=== PATIENT | male | born 1940 | race Caucasian/White ===

== ENCOUNTER 2017-08-28 12:20 | Emergency (ER) | payer OTHER ==
[2017-08-28] MEDS ORDERED: predniSONE 20 MG TAB ONE (13:09)
[2017-08-28] MEDS ORDERED: ALBUTEROL 2.5 MG/3 ML NEB SOL ONE (13:09)
[2017-08-28] MEDS ORDERED: IPRATROPIUM BROM 0.5MG/2.5ML ONE (13:09)
--- NOTE | 2017-08-28 13:53 | RAD REPORT ---
EXAM DESCRIPTION: RAD - Chest Pa And Lat (2 Views) - 08/28/2017 1:33 pm CLINICAL HISTORY: Cough and fever. COMPARISON: 10/18/2016, 07/25/2016 FINDINGS: The lungs are mildly emphysematous but clear. The heart is normal in size. No displaced fr actures. IMPRESSION: Mild COPD.
--- NOTE | 2017-08-28 14:31 | ER ---
Nurse's Notes [facility] Name: Stefano Celeste Age: 77 yrs Sex: Male : 1940 Arrival Date: 08/28/2017 Time: 12: Bed 19 Private MD: Diagnosis: Chronic obstructive pulmonary disease with (acute) exacerbation;Acute bronchitis Presentation: 08/28 12:24 Presenting complaint: Patient states: I have had a productive cough and fever since la1 and not my sputum is getting darker. Transition of care: patient was not received from another setting of care. Onset of symptoms was August 28, 2017. Initial Sepsis Screen: Does the patient meet any 2 criteria? No. Patient's initial sepsis screen is negative. Does the patient have a suspected source of infection? No. Patient's initial sepsis screen is negative. Care prior to arrival: None. 12:24 Method Of Arrival: Ambulatory la1 12:24 Acuity: IZABEL 3 la1 Historical: - Allergies: 12:24 NKDA; la1 - Home Meds: 12:43 atorvastatin 80 mg Oral tab 1 tab once daily [Active]; hydrocortisone 10 mg Oral tab 1 rb1 tab 2 times per day [Active]; levothyroxine 125 mcg tab 1 tab once daily [Active]; lisinopril 2.5 mg Oral tab 1 tab once daily [Active]; metoprolol tartrate 25 mg Oral tab 1 tab 2 times per day [Active]; rivaroxaban 20 mg Oral 1 tab once daily [Active]; Vitamin D Oral [Active]; vitamin E 400 unit Oral cap [Active]; - PMHx: 12:24 Atrial Fib; cardiac stents; COPD; Hypertension; Myocardial infarction; pituitary tumor la1 (removed); Prostate Cancer; - PSHx: 12:43 None; rb1 - Immunization history:: Adult Immunizations up to date. - Social history:: Smoking status: Patient/guardian denies using tobacco. Screenin:40 Abuse screen: Denies threats or abuse. Nutritional screening: No deficits noted. rb1 Tuberculosis screening: No symptoms or risk factors identified. Fall Risk None identified. Assessment: 12:40 General: Appears uncomfortable, Behavior is calm, cooperative. General: Reports fever rb1 for feeling ill for 2-3 days. Pain: Complains of pain in ribs Pain currently is 9 out of 10 on a pain scale. Pain began Robert. Neuro: Level of Consciousness is awake, alert, obeys commands, Oriented to person, place, time, situation. Cardiovascular: Capillary refill < 3 seconds is brisk in bilateral fingers. Respiratory: Reports cough that is productive, Airway is patent Respiratory effort is even, unlabored, Respiratory pattern is regular, symmetrical. GI: No signs and/or symptoms were reported involving the gastrointestinal system. : No signs and/or symptoms were reported regarding the genitourinary system. Derm: Skin is pink, warm \T\ dry. 13:30 Reassessment: Patient appears in no apparent distress at this time. Patient and/or rb1 family updated on plan of care and expected duration. Pain level reassessed. Patient is alert, oriented x 3, equal unlabored respirations, skin warm/dry/pink. Patient states symptoms have improved. 14:23 Reassessment: Patient appears in no apparent distress at this time. No changes from rb1 previously documented assessment. Vital Signs: 12:25 BP 146 / 69; Pulse 87; Resp 19; Temp 99.8(TE); Pulse Ox 95% on R/A; Weight 112.04 kg; la1 Height 6 ft. 0 in. (182.88 cm); 13:20 BP 144 / 63; Pulse 85; Resp 17; Pulse Ox 96% on R/A; rb1 14:12 BP 133 / 70; Pulse 88; Resp 18; Pulse Ox 95% on R/A; rb1 12:25 Body Mass Index 33.50 (112.04 kg, 182.88 cm) la1 ED Course: 12:22 Patient arrived in ED. as 12:24 Arm band placed on right wrist. la1 12:25 Triage completed. la1 12:37 Ryan Pacheco PA is PHCP. jr8 12:37 Rambo Mcguire MD is Attending Physician. jr8 12:38 Precious Berry, CHERYL is Primary Nurse. rb1 12:40 Patient has correct armband on for positive identification. Bed in low position. Call rb1 light in reach. Side rails up X 1. Pulse ox on. NIBP on. 13:29 XRAY Chest Pa And Lat (2 Views) In Process Unspecified. EDMS 14:43 No provider procedures requiring assistance completed. Patient did not have IV access rb1 during this emergency room visit. Administered Medications: 13:10 Drug: predniSONE 40 mg Route: PO; rb1 13:30 Follow up: Response: No adverse reaction; Marked relief of symptoms rb1 13:10 Drug: Albuterol - atroVENT (3:1) (2.5 mg - 0.5 mg) 3 ml Route: Nebulizer; rb1 13:30 Follow up: Response: No adverse reaction; Marked relief of symptoms rb1 Outcome: 14:31 Discharge ordered by MD. borja 14:43 Patient left the ED. rb1 14:43 Discharged to home ambulatory. rb1 14:43 Condition: stable 14:43 Discharge instructions given to patient, Instructed on discharge instructions, follow up and referral plans. medication usage, Demonstrated understanding of instructions, follow-up care, medications, Prescriptions given X 4. Signatures: Dispatcher [employer] Sherie Page Josh, PA PA jr8 Nathaniel Angel RN RN la1 Precious Berry, CHERYL RN rb1 Corrections: (The following items were deleted from the chart) 19:48 13:20 BP 144 / 63; Pulse 85bpm; Resp 17bpm; Pulse Ox 99% RA; rb1 rb1
--- NOTE | 2017-08-28 14:32 | EDPHYS ---
Physician Documentation [facility] Name: Stefano Celeste Age: 77 yrs Sex: Male : 1940 Arrival Date: 08/28/2017 Time: 12:22 Bed 19 Private MD: ED Physician Rambo Mcguire HPI: 08/28 17:29 This 77 yrs old Male presents to ER via Ambulatory with complaints of Chest jr8 Congestion. 17:29 The patient or guardian reports cough, that is intermittent, described as mild. Onset: jr8 The symptoms/episode began/occurred gradually, 1 day(s) ago. Severity of symptoms: At their worst the symptoms were moderate, in the emergency department the symptoms are unchanged. Modifying factors: The symptoms are alleviated by nothing, the symptoms are aggravated by nothing. Associated signs and symptoms: The patient has no apparent associated signs or symptoms. The patient has experienced similar episodes in the past, a few times. The patient has not recently seen a physician. Historical: - Allergies: 12:24 NKDA; la1 - Home Meds: 12:43 atorvastatin 80 mg Oral tab 1 tab once daily [Active]; hydrocortisone 10 mg Oral tab 1 rb1 tab 2 times per day [Active]; levothyroxine 125 mcg tab 1 tab once daily [Active]; lisinopril 2.5 mg Oral tab 1 tab once daily [Active]; metoprolol tartrate 25 mg Oral tab 1 tab 2 times per day [Active]; rivaroxaban 20 mg Oral 1 tab once daily [Active]; Vitamin D Oral [Active]; vitamin E 400 unit Oral cap [Active]; - PMHx: 12:24 Atrial Fib; cardiac stents; COPD; Hypertension; Myocardial infarction; pituitary tumor la1 (removed); Prostate Cancer; - PSHx: 12:43 None; rb1 - Immunization history:: Adult Immunizations up to date. - Social history:: Smoking status: Patient/guardian denies using tobacco. ROS: 17:29 Eyes: Negative for injury, pain, redness, and discharge, ENT: Negative for injury, jr8 pain, and discharge, Neck: Negative for injury, pain, and swelling, Cardiovascular: Negative for chest pain, palpitations, and edema, Abdomen/GI: Negative for abdominal pain, nausea, vomiting, diarrhea, and constipation, Back: Negative for injury and pain, MS/Extremity: Negative for injury and deformity, Skin: Negative for injury, rash, and discoloration, Neuro: Negative for headache, weakness, numbness, tingling, and seizure. 17:29 Respiratory: Positive for cough, Negative for shortness of breath, sputum production, wheezing. Exam: 17:29 Eyes: Pupils equal round and reactive to light, extra-ocular motions intact. Lids and jr8 lashes normal. Conjunctiva and sclera are non-icteric and not injected. Cornea within normal limits. Periorbital areas with no swelling, redness, or edema. ENT: Nares patent. No nasal discharge, no septal abnormalities noted. Tympanic membranes are normal and external auditory canals are clear. Oropharynx with no redness, swelling, or masses, exudates, or evidence of obstruction, uvula midline. Mucous membranes moist. Neck: Trachea midline, no thyromegaly or masses palpated, and no cervical lymphadenopathy. Supple, full range of motion without nuchal rigidity, or vertebral point tenderness. No Meningismus. Cardiovascular: Regular rate and rhythm with a normal S1 and S2. No gallops, murmurs, or rubs. Normal PMI, no JVD. No pulse deficits. Abdomen/GI: Soft, non-tender, with normal bowel sounds. No distension or tympany. No guarding or rebound. No evidence of tenderness throughout. Back: No spinal tenderness. No costovertebral tenderness. Full range of motion. Skin: Warm, dry with normal turgor. Normal color with no rashes, no lesions, and no evidence of cellulitis. MS/ Extremity: Pulses equal, no cyanosis. Neurovascular intact. Full, normal range of motion. Neuro: Awake and alert, GCS 15, oriented to person, place, time, and situation. Cranial nerves II-XII grossly intact. Motor strength 5/5 in all extremities. Sensory grossly intact. Cerebellar exam normal. Normal gait. 17:29 Respiratory: the patient does not display signs of respiratory distress, Respirations: normal, symetrical, no use of accessory muscles, no grunting, no evidence of nasal flaring, no prolonged exhalations, no pursed lip breathing, no retractions, no shallow respirations, no splinting, no tachypnea, Breath sounds: wheezing: expiratory that is moderate, is heard diffusely. Vital Signs: 12:25 BP 146 / 69; Pulse 87; Resp 19; Temp 99.8(TE); Pulse Ox 95% on R/A; Weight 112.04 kg; la1 Height 6 ft. 0 in. (182.88 cm); 13:20 BP 144 / 63; Pulse 85; Resp 17; Pulse Ox 96% on R/A; rb1 14:12 BP 133 / 70; Pulse 88; Resp 18; Pulse Ox 95% on R/A; rb1 12:25 Body Mass Index 33.50 (112.04 kg, 182.88 cm) la1 MDM: 12:37 Patient medically screened. jr8 14:30 Data reviewed: vital signs, nurses notes, lab test result(s), radiologic studies, plain jr8 films, and as a result, I will discharge patient. Data interpreted: Pulse oximetry: on room air is 95 %. Interpretation: normal. Counseling: I had a detailed discussion with the patient and/or guardian regarding: the historical points, exam findings, and any diagnostic results supporting the discharge/admit diagnosis, radiology results, the need for outpatient follow up, a family practitioner, to return to the emergency department if symptoms worsen or persist or if there are any questions or concerns that arise at home. 08/28 12:56 Order name: XRAY Chest Pa And Lat (2 Views); Complete Time: 14:29 jr8 Administered Medications: 13:10 Drug: predniSONE 40 mg Route: PO; rb1 13:30 Follow up: Response: No adverse reaction; Marked relief of symptoms rb1 13:10 Drug: Albuterol - atroVENT (3:1) (2.5 mg - 0.5 mg) 3 ml Route: Nebulizer; rb1 13:30 Follow up: Response: No adverse reaction; Marked relief of symptoms rb1 Disposition: 08/29 09:25 Co-signature as Attending Physician, Rambo Mcguire MD I agree with the assessment and zulema plan of care. Disposition: 08/28/17 14:31 Discharged to Home. Impression: Chronic obstructive pulmonary disease with (acute) exacerbation, Acute bronchitis. - Condition is Stable. - Discharge Instructions: Acute Bronchitis, Chronic Obstructive Pulmonary Disease. - Prescriptions for Tessalon Perles 100 mg Oral Capsule - take 1 capsule by ORAL route every 8 hours As needed; 15 capsule. Zithromax Z- Charly 250 mg Oral Tablet - take 1 tablet by ORAL route as directed for 5 days Day 1 - take two (2) tablets one time. Day 2, 3, 4 , 5 take one (1) tablet once daily.; 6 tablet. Prednisone 20 mg Oral Tablet - take 2 tablet by ORAL route once daily for 5 days; 10 tablet. Albuterol Sulfate 90 mcg/actuation - inhale 1-2 puff by INHALATION route every 4-6 hours; 1 Inhaler. - Medication Reconciliation Form, Thank You Letter, Antibiotic Education, Prescription Opioid Use form. - Follow up: Private Physician; When: 2 - 3 days; Reason: Recheck today's complaints, Continuance of care, Re-evaluation by your physician. - Problem is new. - Symptoms have improved. Signatures: Dispatcher [employer] EDWV Rambo Mcguire MD MD cha Roszak, Josh, PA PA jr8 Nathaniel Angel RN RN la1 Precious Berry RN RN rb1 Corrections: (The following items were deleted from the chart) 08/28 17:30 17:29 The patient has not experienced similar symptoms in the past, jr8 jr8
== END 2017-08-28 14:43 | disposition home or self-care (01) ==
LOC: ER 12:20
DX: J44.1 Chronic obstructive pulmonary disease with (acute) exacerbation (principal); J20.9 Acute bronchitis, unspecified; J44.0 Chronic obstructive pulmonary disease with (acute) lower respiratory infection; I48.2 Chronic atrial fibrillation; I10 Essential (primary) hypertension; I25.2 Old myocardial infarction
CPT/HCPCS: 71046; 94640; 99284; J7512

== ENCOUNTER 2017-10-18 12:49 | Emergency (ER) | payer OTHER ==
--- NOTE | 2017-10-18 14:18 | RAD REPORT ---
EXAM DESCRIPTION: RAD - Chest Single View - 10/18/2017 2:12 pm CLINICAL HISTORY: Chest pain, hypertension COMPARISON: 08/28/2017 FINDINGS: Portable technique limits examination quality. The lungs are grossly clear. The heart is normal in size. No displaced fractures. IMPRESSION: No acute intrathoracic process suspected.
[2017-10-18 14:33] LABS: Absolute Lymphocytes (CBC) 3.4 K/uL (0.7-4.9); Absolute Neutrophil 6.1 K/uL (1.8-8.0); Basophils % 0.7 % (0-1.3); Eosinophils % 3.3 % (0-4.4); Hematocrit 37.1 % (39.6-49.0); MCH 28.5 pg (27.0-35.0); MCV 87.6 fL (80-100); Monocytes % 9.5 % (3.3-12.3); RBC Red Blood Cell Count 4.23 M/uL (4.33-5.43)
--- NOTE | 2017-10-18 14:37 | EKG ---
Test Date: 2017-10-18 Test Time: 14:14:47 Water Plant Operator: LOLA MEASUREMENT RESULTS: Intervals: Rate: 61 CA: 156 QRSD: 88 QT: 426 QTc: 428 [place]: P: 14 CA: 156 QRS: 43 T: 68 INTERPRETIVE STATEMENTS: Normal sinus rhythm Normal ECG Compared to ECG 10/19/2016 06:40:37 No significant changes Electronically Signed On 10-18-17 14:36:52 CDT by Jos Goel
[2017-10-18 14:38] LABS: Protime INR 1.28
[2017-10-18 14:50] LABS: Urine Blood TRACE (NEG); Urine Glucose NEGATIVE (NEG); Urine Protein NEGATIVE (NEG); Urine Specific Gravity <1.005 (1.005-1.030); Urine pH 5.5 (5.0-7.0)
[2017-10-18 14:53] LABS: CKMB Creatine Kinase MB 4.3 ng/ml (0.3-4.0); Potassium 4.4 mEq/L (3.6-5.0)
[2017-10-18 14:59] LABS: Albumin 4.1 g/dL (3.2-5.5); Bilirubin Direct 0.1 mg/dL (0-0.2); Bilirubin Total 0.7 mg/dL (0.3-1.2); Magnesium 2.2 mg/dL (1.8-2.5); Protein, Total 7.2 g/dL (6.0-8.3)
--- NOTE | 2017-10-18 15:19 | ER ---
Nurse's Notes [facility] Name: Stefano Celeste Age: 77 yrs Sex: Male : 1940 Arrival Date: 10/18/2017 Time: 12:52 Bed 13 Private MD: out of town, doctor Diagnosis: Allergy status to drugs, medicaments and biological substances;Chest pain, unspecified Presentation: 10/18 12:55 Presenting complaint: Patient states: blurred vision in bilateral eyes and frontal sv headache after taking Venlafaxine this morning. Transition of care: patient was not received from another setting of care. Onset: The symptoms/episode began/occurred acutely, at 08:00. Anaphylaxis evaluation, no signs or symptoms of anaphylaxis were noted. Onset of symptoms was October 18, 2017. Care prior to arrival: None. 12:55 Method Of Arrival: Ambulatory sv 12:55 Acuity: IZABEL 3 sv 13:35 Risk Assessment: Do you want to hurt yourself or someone else? Patient reports no rb1 desire to harm self or others. Initial Sepsis Screen: Does the patient meet any 2 criteria? No. Patient's initial sepsis screen is negative. Does the patient have a suspected source of infection? No. Patient's initial sepsis screen is negative. Triage Assessment: 13:35 General: Appears in no apparent distress. comfortable, Behavior is calm, cooperative. rb1 Historical: - Allergies: 13:35 venlafaxine; rb1 - Home Meds: 13:35 atorvastatin 80 mg Oral tab 1 tab once daily [Active]; hydrocortisone 10 mg Oral tab 1 rb1 tab 2 times per day [Active]; levothyroxine 125 mcg tab 1 tab once daily [Active]; lisinopril 2.5 mg Oral tab 1 tab once daily [Active]; metoprolol tartrate 25 mg Oral tab 1 tab 2 times per day [Active]; rivaroxaban 20 mg Oral 1 tab once daily [Active]; Vitamin D Oral [Active]; vitamin E 400 unit Oral cap [Active]; - PMHx: 12:59 Atrial Fib; cardiac stents; COPD; Hypertension; Myocardial infarction; pituitary tumor sv (removed); Prostate Cancer; 13:02 Diabetes - NIDDM; sv - PSHx: 13:00 back; cardiac stents; Pituitary tumor removed; sv 13:02 left arm; testicular tumor removed; sv - Immunization history:: Adult Immunizations up to date. - Social history:: Smoking status: Patient uses tobacco products, chewing tobacco. - Ebola Screening: : No symptoms or risks identified at this time. - Family history:: not pertinent. Screenin:35 Abuse screen: Denies threats or abuse. Nutritional screening: No deficits noted. rb1 Tuberculosis screening: No symptoms or risk factors identified. Fall Risk None identified. Assessment: 13:35 General: Appears in no apparent distress. comfortable, Behavior is calm, cooperative, rb1 Denies fever. Pain: Denies pain. Neuro: Level of Consciousness is awake, alert, obeys commands, Oriented to person, place, time, situation. Cardiovascular: Capillary refill < 3 seconds is brisk in bilateral fingers. Respiratory: Airway is patent Respiratory effort is even, unlabored, Respiratory pattern is regular, symmetrical, Breath sounds are clear bilaterally. GI: No signs and/or symptoms were reported involving the gastrointestinal system. : No signs and/or symptoms were reported regarding the genitourinary system. Derm: Skin is pink, warm \T\ dry. Musculoskeletal: Swelling present in bilateral lower extremities. 14:30 Reassessment: Patient appears in no apparent distress at this time. No changes from rb1 previously documented assessment. Patient states feeling better. 15:30 Reassessment: Patient appears in no apparent distress at this time. Patient and/or rb1 family updated on plan of care and expected duration. Pain level reassessed. Patient is alert, oriented x 3, equal unlabored respirations, skin warm/dry/pink. Vital Signs: 13:00 BP 137 / 73; Pulse 97; Resp 18; Temp 98.8; Pulse Ox 96% ; Weight 112.49 kg; Height 6 sv ft. 0 in. (182.88 cm); Pain 5/10; 14:36 BP 134 / 60; Pulse 59; Resp 17; Pulse Ox 98% ; mh5 15:30 BP 135 / 83; Pulse 67; Resp 20; Pulse Ox 99% on R/A; rb1 13:00 Body Mass Index 33.63 (112.49 kg, 182.88 cm) sv ED Course: 12:52 Patient arrived in ED. sb2 12:52 out of town, doctor is Private Physician. sb2 12:58 Triage completed. sv 13:02 Arm band placed on left wrist. sv 13:35 Rambo Mcguire MD is Attending Physician. zulema 13:35 Patient has correct armband on for positive identification. Bed in low position. Call [facility] light in reach. Side rails up X 1. Pulse ox on. NIBP on. 13:47 Precious Berry, RN is Primary Nurse. rb1 14:08 Inserted saline lock: 22 gauge in right antecubital area, using aseptic technique. Blood collected. 14:10 X-ray completed. Portable x-ray completed in exam room. Patient tolerated procedure jb2 well. 14:10 XRAY Chest (1 view) In Process Unspecified. EDMS 14:31 EKG done, by mechanical technologist. reviewed by Rambo Mcguire MD. at1 15:43 No provider procedures requiring assistance completed. IV discontinued, intact, rb1 bleeding controlled, No redness/swelling at site. Pressure dressing applied. Administered Medications: 15:25 Drug: Aspirin 81 mg Route: PO; rb1 15:43 Follow up: Response: No adverse reaction rb1 Outcome: 15:19 Discharge ordered by MD. [facility] 15:43 Patient left the ED. rb1 15:43 Discharged to home ambulatory. rb1 15:43 Condition: stable 15:43 Discharge instructions given to patient, Instructed on discharge instructions, follow up and referral plans. Demonstrated understanding of instructions, follow-up care, Prescriptions given X none Signatures: Dispatcher [employer] EDMS Clementina Banuelos, Rambo Severino RN, MD MD cha Buechter, Jesse jb2 Rosy George RN RN ss gonzales, Amanda, supervisor fishing EKG Tat1 Precious Berry, RN RN Stephany Murdock 5 Pennie Alcala sb2 Corrections: (The following items were deleted from the chart) 16:57 12:59 Allergies: NKDA; rb1
--- NOTE | 2017-10-18 15:19 | EDPHYS ---
Physician Documentation [facility] Name: Stefano Celeste Age: 77 yrs Sex: Male : 1940 Arrival Date: 10/18/2017 Time: 12:52 Bed 13 Private MD: out of town, doctor ED Physician Rambo Mcguire HPI: 10/18 14:01 This 77 yrs old Male presents to ER via Ambulatory with complaints of zulema Allergic Reaction. 14:01 The patient presents with chest pain. Onset: The symptoms/episode began/occurred just zulema prior to arrival. Associated signs and symptoms: The patient has no apparent associated signs or symptoms. Possible causes: antidepressants. At home the patient or guardian has treated the symptoms with nothing. Severity of symptoms: At their worst the symptoms were mild in the emergency department the symptoms are unchanged. The patient has not experienced similar symptoms in the past. Historical: - Allergies: 13:35 venlafaxine; rb1 - Home Meds: 13:35 atorvastatin 80 mg Oral tab 1 tab once daily [Active]; hydrocortisone 10 mg Oral tab 1 rb1 tab 2 times per day [Active]; levothyroxine 125 mcg tab 1 tab once daily [Active]; lisinopril 2.5 mg Oral tab 1 tab once daily [Active]; metoprolol tartrate 25 mg Oral tab 1 tab 2 times per day [Active]; rivaroxaban 20 mg Oral 1 tab once daily [Active]; Vitamin D Oral [Active]; vitamin E 400 unit Oral cap [Active]; - PMHx: 12:59 Atrial Fib; cardiac stents; COPD; Hypertension; Myocardial infarction; pituitary tumor sv (removed); Prostate Cancer; 13:02 Diabetes - NIDDM; sv - PSHx: 13:00 back; cardiac stents; Pituitary tumor removed; sv 13:02 left arm; testicular tumor removed; sv - Immunization history:: Adult Immunizations up to date. - Social history:: Smoking status: Patient uses tobacco products, chewing tobacco. - Ebola Screening: : No symptoms or risks identified at this time. - Family history:: not pertinent. ROS: 14:01 Constitutional: Negative for fever, chills, and weight loss, Eyes: Negative for injury, zulema pain, redness, and discharge, ENT: Negative for injury, pain, and discharge, Neck: Negative for injury, pain, and swelling, Respiratory: Negative for shortness of breath, cough, wheezing, and pleuritic chest pain, Abdomen/GI: Negative for abdominal pain, nausea, vomiting, diarrhea, and constipation, Back: Negative for injury and pain, : Negative for injury, bleeding, discharge, and swelling, MS/Extremity: Negative for injury and deformity, Skin: Negative for injury, rash, and discoloration, Neuro: Negative for headache, weakness, numbness, tingling, and seizure, Psych: Negative for depression, anxiety, suicide ideation, homicidal ideation, and hallucinations, Allergy/Immunology: Negative for hives, rash, and allergies, Endocrine: Negative for neck swelling, polydipsia, polyuria, polyphagia, and marked weight changes, Hematologic/Lymphatic: Negative for swollen nodes, abnormal bleeding, and unusual bruising. 14:01 Cardiovascular: Positive for chest pain. Exam: 14:01 Constitutional: This is a well developed, well nourished patient who is awake, alert, zulema and in no acute distress. Head/Face: Normocephalic, atraumatic. Eyes: Pupils equal round and reactive to light, extra-ocular motions intact. Lids and lashes normal. Conjunctiva and sclera are non-icteric and not injected. Cornea within normal limits. Periorbital areas with no swelling, redness, or edema. ENT: Nares patent. No nasal discharge, no septal abnormalities noted. Tympanic membranes are normal and external auditory canals are clear. Oropharynx with no redness, swelling, or masses, exudates, or evidence of obstruction, uvula midline. Mucous membranes moist. Neck: Trachea midline, no thyromegaly or masses palpated, and no cervical lymphadenopathy. Supple, full range of motion without nuchal rigidity, or vertebral point tenderness. No Meningismus. Chest/axilla: Normal chest wall appearance and motion. Nontender with no deformity. No lesions are appreciated. Cardiovascular: Regular rate and rhythm with a normal S1 and S2. No gallops, murmurs, or rubs. Normal PMI, no JVD. No pulse deficits. Respiratory: Lungs have equal breath sounds bilaterally, clear to auscultation and percussion. No rales, rhonchi or wheezes noted. No increased work of breathing, no retractions or nasal flaring. Abdomen/GI: Soft, non-tender, with normal bowel sounds. No distension or tympany. No guarding or rebound. No evidence of tenderness throughout. Back: No spinal tenderness. No costovertebral tenderness. Full range of motion. Male : Normal genitalia with no discharge or lesions. Skin: Warm, dry with normal turgor. Normal color with no rashes, no lesions, and no evidence of cellulitis. MS/ Extremity: Pulses equal, no cyanosis. Neurovascular intact. Full, normal range of motion. Neuro: Awake and alert, GCS 15, oriented to person, place, time, and situation. Cranial nerves II-XII grossly intact. Motor strength 5/5 in all extremities. Sensory grossly intact. Cerebellar exam normal. Normal gait. Psych: Awake, alert, with orientation to person, place and time. Behavior, mood, and affect are within normal limits. 14:01 Musculoskeletal/extremity: DVT Exam: No signs of deep vein thrombosis. no pain, no swelling, no tenderness, negative Homans' sign noted on exam, no appreciated bluish discoloration, no erythema, no increased warmth. Vital Signs: 13:00 BP 137 / 73; Pulse 97; Resp 18; Temp 98.8; Pulse Ox 96% ; Weight 112.49 kg; Height 6 sv ft. 0 in. (182.88 cm); Pain 5/10; 14:36 BP 134 / 60; Pulse 59; Resp 17; Pulse Ox 98% ; mh5 15:30 BP 135 / 83; Pulse 67; Resp 20; Pulse Ox 99% on R/A; rb1 13:00 Body Mass Index 33.63 (112.49 kg, 182.88 cm) sv MDM: 13:35 Patient medically screened. [facility] 14:02 Data reviewed: vital signs, nurses notes, lab test result(s), EKG, radiologic studies, [facility] plain films. 10/18 13:59 Order name: Basic Metabolic Panel; Complete Time: 15:16 [facility] 10/18 13:59 Order name: BNP; Complete Time: 15:16 [facility] 10/18 13:59 Order name: CBC with Diff; Complete Time: 15:16 [facility] 10/18 13:59 Order name: Ckmb; Complete Time: 15:16 [facility] 10/18 13:59 Order name: CPK; Complete Time: 15:16 [facility] 10/18 13:59 Order name: LFT's; Complete Time: 15:16 [facility] 10/18 13:59 Order name: Magnesium; Complete Time: 15:16 [facility] 10/18 13:59 Order name: PT-INR; Complete Time: 15:16 [facility] 10/18 13:59 Order name: Ptt, Activated; Complete Time: 15:16 [facility] 10/18 13:59 Order name: Troponin (emerg Dept Use Only); Complete Time: 15:16 [facility] 10/18 13:59 Order name: XRAY Chest (1 view); Complete Time: 15:16 [facility] 10/18 13:59 Order name: Lipase; Complete Time: 15:16 [facility] 10/18 14:33 Order name: Urine Dipstick--Ancillary (enter results); Complete Time: 15:16 10/18 13:59 Order name: EKG; Complete Time: 14:00 [facility] 10/18 13:59 Order name: Cardiac monitoring; Complete Time: 14:51 [facility] 10/18 13:59 Order name: EKG - Nurse/Tech; Complete Time: 14:51 [facility] 10/18 13:59 Order name: IV Saline Lock; Complete Time: 14:51 [facility] 10/18 13:59 Order name: Labs collected and sent; Complete Time: 14:51 [facility] 10/18 13:59 Order name: O2 Per Protocol; Complete Time: 14:51 [facility] 10/18 13:59 Order name: O2 Sat Monitoring; Complete Time: 14:51 [facility] 10/18 13:59 Order name: Urine Dipstick-Ancillary (obtain specimen); Complete Time: 14:51 [facility] Administered Medications: 15:25 Drug: Aspirin 81 mg Route: PO; rb1 15:43 Follow up: Response: No adverse reaction rb1 Disposition: 10/18/17 15:19 Discharged to Home. Impression: Allergy status to drugs, medicaments and biological substances, Chest pain, unspecified. - Condition is Stable. - Discharge Instructions: Allergies, Nonspecific Chest Pain, Drug Allergy, Nonspecific Chest Pain, [id number], Aspirin and Your Heart, Allergies, [id number]. - Medication Reconciliation Form, Thank You Letter, Antibiotic Education, Prescription Opioid Use form. - Follow up: Private Physician; When: 2 - 3 days; Reason: Recheck today's complaints, Continuance of care, Re-evaluation by your physician. - Problem is new. - Symptoms have improved. Signatures: Dispatcher [employer] Clementina Harris RN RN Rambo Rodríguez MD MD cha Barber, Rebecca RN RN rb1 Corrections: (The following items were deleted from the chart) 15:43 15:19 10/18/2017 15:19 Discharged to Home. Impression: Allergy status to drugs, rb1 medicaments and biological substances; Chest pain, unspecified. Condition is Stable. Discharge Instructions: Allergies, Nonspecific Chest Pain, Drug Allergy, Nonspecific Chest Pain, [id number], Aspirin and Your Heart, Allergies, [id number]. Forms are Medication Reconciliation Form, Thank You Letter, Antibiotic Education, Prescription Opioid Use. Follow up: Private Physician; When: 2 - 3 days; Reason: Recheck today's complaints, Continuance of care, Re-evaluation by your physician. Problem is new. Symptoms have improved. [facility] 16:57 12:59 Allergies: NKDA; sv rb1
[2017-10-18] MEDS ORDERED: ASPIRIN EC 81 MG TAB PO ONE (15:27)
== END 2017-10-18 15:43 | disposition home or self-care (01) ==
LOC: ER 12:49
DX: T50.995A Adverse effect of other drugs, medicaments and biological substances, initial encounter (principal); J44.9 Chronic obstructive pulmonary disease, unspecified; I10 Essential (primary) hypertension; I25.2 Old myocardial infarction; E11.9 Type 2 diabetes mellitus without complications; I48.91 Unspecified atrial fibrillation; F17.220 Nicotine dependence, chewing tobacco, uncomplicated; Y92.9 Unspecified place or not applicable
CPT/HCPCS: 36415; 71045; 80048; 80076; 81003; 82550; 82553; 83690; 83735; 83880; 84484; 85025; 85610; 85730; 93005; 99284

== ENCOUNTER 2018-08-22 19:40 | Emergency (ER) | payer OTHER ==
--- NOTE | 2018-08-22 20:27 | ER ---
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 pt stated taking medications at a different time daily now because of BP increase while at cardio rehab daily. Transition of care: patient was not received from another setting of care. Onset of symptoms is unknown. Risk Assessment: Do you want to hurt yourself or someone else? Patient reports no desire to harm self or others. Care prior to arrival: None. 19:51 Method Of Arrival: Ambulatory ak1 19:51 Acuity: IZABEL 3 ak1 20:15 Initial Sepsis Screen: Does the patient meet any 2 criteria? No. Patient's initial lp1 sepsis screen is negative. Does the patient have a suspected source of infection? No. Patient's initial sepsis screen is negative. Triage Assessment: 19:54 General: Appears in no apparent distress. Behavior is calm, cooperative. ak1 Historical: - Allergies: 19:54 VENLAFAXINE; ak1 - Home Meds: 19:54 atorvastatin 80 mg Oral tab 1 tab once daily [Active]; hydrocortisone 10 mg Oral tab 1 ak1 tab 2 times per day [Active]; levothyroxine 125 mcg tab 1 tab once daily [Active]; lisinopril 2.5 mg Oral tab 1 tab once daily [Active]; metoprolol tartrate 25 mg Oral tab 1 tab 2 times per day [Active]; Vitamin D Oral [Active]; vitamin E 400 unit Oral cap [Active]; rivaroxaban 20 mg Oral 1 tab once daily [Active]; Melatonin Oral [Active]; Tylenol PM Extra Strength oral oral [Active]; - PMHx: 19:54 Atrial Fib; cardiac stents; COPD; Diabetes - NIDDM; Hypertension; Myocardial ak1 infarction; pituitary tumor (removed); Prostate Cancer; - PSHx: 19:54 back; cardiac stents; Pituitary tumor removed; left arm; testicular tumor removed; ak1 - Immunization history:: Adult Immunizations unknown. - Social history:: Smoking status: Patient/guardian denies using tobacco. - Ebola Screening: : No symptoms or risks identified at this time. Screenin:15 Abuse screen: Denies threats or abuse. Denies injuries from another. Nutritional lp1 screening: No deficits noted. Tuberculosis screening: No symptoms or risk factors identified. Fall Risk None identified. Assessment: 20:14 General: Appears in no apparent distress. Behavior is calm, cooperative, appropriate lp1 for age. Pain: Complains of pain in "I feel a little bit of pressure behind my eyes" Pain currently is 4 out of 10 on a pain scale. Neuro: Level of Consciousness is awake, alert, obeys commands, Oriented to person, place, time, situation. Cardiovascular: Patient's skin is warm and dry. Respiratory: Respiratory effort is even, unlabored, Breath sounds are clear bilaterally. GI: No deficits noted. : No deficits noted. EENT: No deficits noted. Derm: Skin is pink, warm \\T\\ dry. Musculoskeletal: No deficits noted. Vital Signs: 19:54 BP 165 / 73; Pulse 64; Resp 18; Temp 97.8(TE); Pulse Ox 97% on R/A; Weight 123.38 kg ak1 (R); Height 6 ft. 0 in. (182.88 cm) (R); Pain 0/10; 20:16 BP 169 / 73; Pulse 59; Resp 15; Pulse Ox 96% on R/A; Pain 3/10; lp1 19:54 Body Mass Index 36.89 (123.38 kg, 182.88 cm) ak1 ED Course: 19:41 Patient arrived in ED. am2 19:52 Triage completed. ak1 19:54 Arm band placed on Patient placed in an exam room, Patient notified of wait time. ak1 20:00 Luis Butler MD is Attending Physician. gs 20:13 Oralia Márquez, RN is Primary Nurse. lp1 20:15 Patient has correct armband on for positive identification. playground monitor on. Pulse lp1 ox on. NIBP on. 20:15 No provider procedures requiring assistance completed. lp1 20:32 Patient did not have IV access during this emergency room visit. lp1 Administered Medications: No medications were administered Outcome: 20:26 Discharge ordered by . 20:33 Discharged to home ambulatory. lp1 20:33 Condition: good 20:33 Discharge instructions given to patient, Instructed on discharge instructions, follow up and referral plans. Demonstrated understanding of instructions, follow-up care. 20:34 Patient left the ED. lp1 Signatures: Oralia Márquez RN RN lp1 Korina Pickens RN RN ak1 Terrie Aceves am2 Luis Butler MD MD
--- NOTE | 2018-08-22 20:27 | EDPHYS ---
Physician Documentation [facility] Name: Stefano Celeste Age: 78 yrs Sex: Male : 1940 Arrival Date: 08/22/2018 Time: 19:41 Bed 25 Private MD: ED Physician Luis Butler HPI: 08/22 20:24 This 78 yrs old Male presents to ER via Ambulatory with complaints of High gs Blood Pressure. 20:24 Onset: The symptoms/episode began/occurred 5 day(s) ago, and became persistent. gs Modifying factors: The symptoms are aggravated by activity. Associated signs and symptoms: Pertinent negatives: chest pain, dizziness, dyspnea, headache, lightheadedness, occasion eye pressure. Severity of symptoms: At its worst the blood pressure was moderate, in the emergency department the blood pressure is unchanged. The patient has experienced similar episodes in the past, a few times. Historical: - Allergies: 19:54 VENLAFAXINE; ak1 - Home Meds: 19:54 atorvastatin 80 mg Oral tab 1 tab once daily [Active]; hydrocortisone 10 mg Oral tab 1 ak1 tab 2 times per day [Active]; levothyroxine 125 mcg tab 1 tab once daily [Active]; lisinopril 2.5 mg Oral tab 1 tab once daily [Active]; metoprolol tartrate 25 mg Oral tab 1 tab 2 times per day [Active]; Vitamin D Oral [Active]; vitamin E 400 unit Oral cap [Active]; rivaroxaban 20 mg Oral 1 tab once daily [Active]; Melatonin Oral [Active]; Tylenol PM Extra Strength oral oral [Active]; - PMHx: 19:54 Atrial Fib; cardiac stents; COPD; Diabetes - NIDDM; Hypertension; Myocardial ak1 infarction; pituitary tumor (removed); Prostate Cancer; - PSHx: 19:54 back; cardiac stents; Pituitary tumor removed; left arm; testicular tumor removed; ak1 - Immunization history:: Adult Immunizations unknown. - Social history:: Smoking status: Patient/guardian denies using tobacco. - Ebola Screening: : No symptoms or risks identified at this time. ROS: 20:24 All other systems are negative. gs Exam: 20:24 Head/Face: Normocephalic, atraumatic. Eyes: Pupils equal round and reactive to light, gs extra-ocular motions intact. Lids and lashes normal. Conjunctiva and sclera are non-icteric and not injected. Cornea within normal limits. Periorbital areas with no swelling, redness, or edema. ENT: Nares patent. No nasal discharge, no septal abnormalities noted. Tympanic membranes are normal and external auditory canals are clear. Oropharynx with no redness, swelling, or masses, exudates, or evidence of obstruction, uvula midline. Mucous membranes moist. Neck: Trachea midline, no thyromegaly or masses palpated, and no cervical lymphadenopathy. Supple, full range of motion without nuchal rigidity, or vertebral point tenderness. No Meningismus. Chest/axilla: Normal chest wall appearance and motion. Nontender with no deformity. No lesions are appreciated. Cardiovascular: Regular rate and rhythm with a normal S1 and S2. No gallops, murmurs, or rubs. Normal PMI, no JVD. No pulse deficits. Respiratory: Lungs have equal breath sounds bilaterally, clear to auscultation and percussion. No rales, rhonchi or wheezes noted. No increased work of breathing, no retractions or nasal flaring. Abdomen/GI: Soft, non-tender, with normal bowel sounds. No distension or tympany. No guarding or rebound. No evidence of tenderness throughout. Back: No spinal tenderness. No costovertebral tenderness. Full range of motion. Skin: Warm, dry with normal turgor. Normal color with no rashes, no lesions, and no evidence of cellulitis. MS/ Extremity: Pulses equal, no cyanosis. Neurovascular intact. Full, normal range of motion. Neuro: Awake and alert, GCS 15, oriented to person, place, time, and situation. Cranial nerves II-XII grossly intact. Motor strength 5/5 in all extremities. Sensory grossly intact. Cerebellar exam normal. Normal gait. 20:24 Constitutional: The patient appears alert, awake. Vital Signs: 19:54 BP 165 / 73; Pulse 64; Resp 18; Temp 97.8(TE); Pulse Ox 97% on R/A; Weight 123.38 kg ak1 (R); Height 6 ft. 0 in. (182.88 cm) (R); Pain 0/10; 20:16 BP 169 / 73; Pulse 59; Resp 15; Pulse Ox 96% on R/A; Pain 3/10; lp1 19:54 Body Mass Index 36.89 (123.38 kg, 182.88 cm) ak1 MDM: 20:19 Patient medically screened. 20:24 Data reviewed: vital signs, nurses notes. Counseling: I had a detailed discussion with gs the patient and/or guardian regarding: the historical points, exam findings, and any diagnostic results supporting the discharge/admit diagnosis, the need for outpatient follow up. ED course: currently asymptomatic, stressed need to see pcp or touch up carver to adjust meds. Administered Medications: No medications were administered Disposition: 08/22/18 20:26 Discharged to Home. Impression: Essential (primary) hypertension. - Condition is Stable. - Discharge Instructions: Hypertension. - Medication Reconciliation Form, Thank You Letter, Antibiotic Education, Prescription Opioid Use form. - Follow up: Private Physician; When: Tomorrow. Signatures: Oralia Márquez RN RN lp1 Korina Pickens RN RN ak1 Luis Butler MD MD gs Corrections: (The following items were deleted from the chart) 20:34 20:26 08/22/2018 20:26 Discharged to Home. Impression: Essential (primary) lp1 hypertension. Condition is Stable. Forms are Medication Reconciliation Form, Thank You Letter, Antibiotic Education, Prescription Opioid Use. Follow up: Private Physician; When: Tomorrow. gs
== END 2018-08-22 20:34 | disposition home or self-care (01) ==
LOC: ER 19:40
DX: I10 Essential (primary) hypertension (principal); E11.9 Type 2 diabetes mellitus without complications; J44.9 Chronic obstructive pulmonary disease, unspecified; I48.91 Unspecified atrial fibrillation; I25.2 Old myocardial infarction; Z85.46 Personal history of malignant neoplasm of prostate; Z88.8 Allergy status to other drugs, medicaments and biological substances; Z95.818 Presence of other cardiac implants and grafts
CPT/HCPCS: 99284

== ENCOUNTER 2018-08-28 07:07 | Emergency (ER) | payer OTHER ==
[2018-08-28 08:22] LABS: Absolute Monocytes 1.1 K/uL (0.1-1.3); Absolute Neutrophil 5.7 K/uL (1.8-8.0); Basophils % 0.9 % (0-1.3); Eosinophils % 7.7 % (0-4.4); Hematocrit 43.1 % (39.6-49.0); Lymphocytes % 27.8 % (15.3-44.8); MPV 8.4 fL (7.6-11.3); Monocytes % 10.5 % (3.3-12.3); RBC Red Blood Cell Count 4.79 M/uL (4.33-5.43)
[2018-08-28 08:26] LABS: Protime INR 1.15
[2018-08-28 08:51] LABS: ALT/SGPT 37 U/L (12-78); AST/SGOT 25 U/L (15-37); Alkaline Phosphatase 61 U/L (45-117); BUN Blood Urea Nitrogen 9 mg/dL (7-18); Bicarbonate 29 mmol/L (21-32); Bilirubin Direct 0.1 mg/dL (0-0.2); Bilirubin Total 0.5 mg/dL (0.2-1.0); Glucose Level 112 mg/dL (74-106); Magnesium 2.3 mg/dL (1.8-2.4); NT PRO-BNP 245 pg/mL (<450); Potassium 3.9 mmol/L (3.5-5.1); Protein, Total 7.8 g/dL (6.4-8.2); Sodium Level 140 mmol/L (136-145); Troponin (Emerg Dept Use Only) < 0.02 ng/mL (0.0-0.045)
--- NOTE | 2018-08-28 09:18 | RAD REPORT ---
EXAM DESCRIPTION: RAD - Chest Single View - 08/28/2018 7:51 am CLINICAL HISTORY: Shortness of breath, atrial fibrillation, hypertension COMPARISON: October 18, 2017 TECHNIQUE: AP portable chest image was obtained 0746 hour . FINDINGS: No acute mass, infiltrate or failure finding. Scarring or atelectasis change at each base not substantially different from comparison. Heart and vasculature are normal. No measurable pleural effusion and no pneumothorax. No acute bony abnormality seen. No acute aortic findings suspected. IMPRESSION: No acute cardiopulmonary process. No significant change from comparison.
--- NOTE | 2018-08-28 10:16 | ER ---
Nurse's Notes [facility] Name: Stefano Celeste Age: 78 yrs Sex: Male : 1940 Arrival Date: 08/28/2018 Time: 07:09 Bed 2 Private MD: Diagnosis: Palpitations Presentation: 08/28 07:12 Presenting complaint: Patient states: "my blood pressure was high and I went walking aa5 and my blood pressure went back to normal but when I checked it again I noticed my pulse went up to 140 with the pulse ox on and it would go up on and off". Pt reports intermittent palpitations. Transition of care: patient was not received from another setting of care. Onset of symptoms was August 2018. Risk Assessment: Do you want to hurt yourself or someone else? Patient reports no desire to harm self or others. Initial Sepsis Screen: Does the patient meet any 2 criteria? No. Patient's initial sepsis screen is negative. Does the patient have a suspected source of infection? No. Patient's initial sepsis screen is negative. Care prior to arrival: None. 07:12 Method Of Arrival: Ambulatory aa5 07:12 Acuity: IZABEL 3 aa5 Triage Assessment: 07:28 General: Appears in no apparent distress. uncomfortable, Behavior is calm, cooperative, hj appropriate for age. Pain: Complains of pain in chest. Historical: - PMHx: 07:20 Atrial Fib; cardiac stents; Diabetes - NIDDM; Hypertension; Myocardial infarction; aa5 pituitary tumor (removed); Prostate Cancer; COPD; - PSHx: 07:20 back; cardiac stents; Pituitary tumor removed; left arm; testicular tumor removed; aa5 - Immunization history:: Adult Immunizations up to date. - Ebola Screening: : No symptoms or risks identified at this time. - Social history:: Smoking status: Patient/guardian denies using tobacco, Patient/guardian denies using alcohol. Screenin:27 Abuse screen: Denies threats or abuse. Denies injuries from another. Nutritional hj screening: No deficits noted. Tuberculosis screening: No symptoms or risk factors identified. Fall Risk None identified. Assessment: 07:20 General: Appears in no apparent distress. comfortable, Behavior is cooperative, bp appropriate for age, anxious. Pain: Denies pain. Neuro: Level of Consciousness is awake, alert, obeys commands, Oriented to person, place, time, situation, Appropriate for age. Cardiovascular: Rhythm is atrial fibrillation. Respiratory: Airway is patent Respiratory effort is even, unlabored, Respiratory pattern is regular, symmetrical. GI: No signs and/or symptoms were reported involving the gastrointestinal system. : No signs and/or symptoms were reported regarding the genitourinary system. EENT: No deficits noted. Derm: No deficits noted. Musculoskeletal: Circulation, motion, and sensation intact. Range of motion: intact in all extremities. 08:30 Reassessment: ALL CURRENT ORDERS COMPLETED, RESULTS PENDING. NO RVR ON MONITOR. bp 09:30 Reassessment: PT REMAINS IN AFIB, ALL CURRENT ORDERS RESULTED, DISPO PENDING. bp 10:45 Reassessment: PT D/C HOME AMBULATORY, DX WITH PALPITATIONS. bp Vital Signs: 07:15 BP 146 / 78; Pulse 74; Resp 18 S; Temp 97.3(TE); Pulse Ox 98% on R/A; Weight 122.47 kg aa5 (R); Height 6 ft. 0 in. (182.88 cm) (R); Pain 0/10; 07:29 BP 129 / 83; Pulse 105; Resp 18; Pulse Ox 99% on R/A; hj 08:28 BP 153 / 82; Pulse 84; Resp 16; Pulse Ox 98% ; bp 09:38 BP 147 / 84; Pulse 71; Resp 21; Pulse Ox 98% ; bp 10:44 BP 140 / 71; Pulse 81; Resp 16; Pulse Ox 97% ; bp 07:15 Body Mass Index 36.62 (122.47 kg, 182.88 cm) aa5 ED Course: 07:09 Patient arrived in ED. mr 07:12 Yasmany Otoole MD is Attending Physician. kdr 07:12 Arm band placed on. aa5 07:15 Triage completed. aa5 07:17 Pierre Alvares, RN is Primary Nurse. bp 07:27 Initial lab(s) drawn, by me, sent to lab. Inserted saline lock: in left forearm, using hj aseptic technique. ,using aseptic technique. BP, RN Blood collected. 07:28 Patient has correct armband on for positive identification. Placed in gown. Bed in low hj position. Call light in reach. Side rails up X 1. Adult w/ patient. 07:33 EKG done, by power tool repair technician. reviewed by Yasmany Otoole MD. at1 07:47 X-ray completed. Portable x-ray completed in exam room. Patient tolerated procedure ls3 well. 07:48 XRAY Chest (1 view) In Process Unspecified. EDMS 08:19 Inserted saline lock: 22 gauge in right forearm, using aseptic technique. hj 10:45 No provider procedures requiring assistance completed. IV discontinued, intact, bp bleeding controlled, No redness/swelling at site. Pressure dressing applied. Administered Medications: No medications were administered Outcome: 10:15 Discharge ordered by . kdr 10:45 Discharged to home ambulatory. bp 10:45 Condition: stable 10:45 Discharge instructions given to patient, Instructed on discharge instructions, follow up and referral plans. Demonstrated understanding of instructions, follow-up care. 10:46 Patient left the ED. bp Signatures: Dispatcher [employer] EDNJ Yasmany Otoole MD MD kdr Rivera, Mary mr RobLorna, RN RN aa5 Terrie Dunham, nuclear plant construction worker EKG Tat1 Rodger Ray, CHERYL RN Pierre Davila, CHERYL RN bp Natalia Branch ls3
--- NOTE | 2018-08-28 10:16 | EDPHYS ---
Physician Documentation [facility] Name: Stefano Celeste Age: 78 yrs Sex: Male : 1940 Arrival Date: 08/28/2018 Time: 07:09 Bed 2 Private MD: ED Physician Yasmany Otoole HPI: 08/28 07:36 This 78 yrs old Male presents to ER via Ambulatory with complaints of kdr Palpitations. 07:36 The patient presents with a history of irregular heart beat, heart racing. Context: The kdr symptoms occur at rest. Onset: The symptoms/episode began/occurred at an unknown time. Duration: The patient or guardian reports multiple episodes, that are intermittent, that wax and wane, with no pattern. Modifying factors: The symptoms are aggravated by anxiety, The symptoms are alleviated by nothing. Associated signs and symptoms: Pertinent positives: anxiety, Pertinent negatives: chest pain, cough, fever, lightheadedness, nausea, SOB, syncope, near-syncope, unusual stressors, vertigo, vomiting. Severity of symptoms: At their worst the symptoms were mild in the emergency department the symptoms have improved moderately, Pain is currently a 0 / 10. The patient has experienced similar episodes in the past, a few times. The patient has not recently seen a physician. The patient states that he noted his HR was intermittently elevated as well as his BP. . 08:08 States that he has been having trouble sleeping lately and had tried a new OTC kdr "organic" medication last night which did not seem to help. He still had difficulty and while checking his BP this morning, he noted that his HR would occasionally go above 100 to 109 - 140. He was not symptomatic. He was otherwise without c/o and was not in any acute distress. Historical: - PMHx: 07:20 Atrial Fib; cardiac stents; Diabetes - NIDDM; Hypertension; Myocardial infarction; aa5 pituitary tumor (removed); Prostate Cancer; COPD; - PSHx: 07:20 back; cardiac stents; Pituitary tumor removed; left arm; testicular tumor removed; aa5 - Immunization history:: Adult Immunizations up to date. - Ebola Screening: : No symptoms or risks identified at this time. - Social history:: Smoking status: Patient/guardian denies using tobacco, Patient/guardian denies using alcohol. ROS: 08:08 Constitutional: Negative for fever, chills, and weight loss, Eyes: Negative for injury, kdr pain, redness, and discharge, ENT: Negative for injury, pain, and discharge, Neck: Negative for injury, pain, and swelling, Respiratory: Negative for shortness of breath, cough, wheezing, and pleuritic chest pain, Abdomen/GI: Negative for abdominal pain, nausea, vomiting, diarrhea, and constipation, Back: Negative for injury and pain, : Negative for injury, bleeding, discharge, and swelling, MS/Extremity: Negative for injury and deformity, Skin: Negative for injury, rash, and discoloration, Neuro: Negative for headache, weakness, numbness, tingling, and seizure activity. Psych: Negative for depression, anxiety, suicide ideation, homicidal ideation, and hallucinations, Allergy/Immunology: Negative for hives, rash, and allergies, Endocrine: Negative for neck swelling, polydipsia, polyuria, polyphagia, and marked weight changes, He has been urinating a lot recently - does not know what his BS has been. Hematologic/Lymphatic: Negative for swollen nodes, abnormal bleeding, and unusual bruising. 08:08 Cardiovascular: Positive for edema, palpitations, Negative for chest pain. Exam: 08:08 Constitutional: This is a well developed, well nourished patient who is awake, alert, kdr and in no acute distress. Head/Face: Normocephalic, atraumatic. Eyes: Pupils equal round and reactive to light, extra-ocular motions intact. Lids and lashes normal. Conjunctiva and sclera are non-icteric and not injected. Cornea within normal limits. Periorbital areas with no swelling, redness, or edema. Neck: Trachea midline, no thyromegaly or masses palpated, and no cervical lymphadenopathy. Supple, full range of motion without nuchal rigidity, or vertebral point tenderness. No Meningismus. Chest/axilla: Normal chest wall appearance and motion. Nontender with no deformity. No lesions are appreciated. Respiratory: Lungs have equal breath sounds bilaterally, clear to auscultation and percussion. No rales, rhonchi or wheezes noted. No increased work of breathing, no retractions or nasal flaring. Abdomen/GI: Soft, non-tender, with normal bowel sounds. No distension or tympany. No guarding or rebound. No evidence of tenderness throughout. Back: No spinal tenderness. No costovertebral tenderness. Full range of motion. Skin: Warm, dry with normal turgor. Normal color with no rashes, no lesions, and no evidence of cellulitis. MS/ Extremity: Pulses equal, no cyanosis. Neurovascular intact. Full, normal range of motion. Neuro: Awake and alert, GCS 15, oriented to person, place, time, and situation. Cranial nerves II-XII grossly intact. Motor strength 5/5 in all extremities. Sensory grossly intact. Cerebellar exam normal. Normal gait. Psych: Awake, alert, with orientation to person, place and time. Behavior, mood, and affect are within normal limits. 08:08 Cardiovascular: Rate: normal, Rhythm: irregularly irregular, Pulses: no pulse deficits are appreciated, Heart sounds: normal. 08:08 ECG was reviewed by the Attending Physician. Vital Signs: 07:15 BP 146 / 78; Pulse 74; Resp 18 S; Temp 97.3(TE); Pulse Ox 98% on R/A; Weight 122.47 kg aa5 (R); Height 6 ft. 0 in. (182.88 cm) (R); Pain 0/10; 07:29 BP 129 / 83; Pulse 105; Resp 18; Pulse Ox 99% on R/A; hj 08:28 BP 153 / 82; Pulse 84; Resp 16; Pulse Ox 98% ; bp 09:38 BP 147 / 84; Pulse 71; Resp 21; Pulse Ox 98% ; bp 10:44 BP 140 / 71; Pulse 81; Resp 16; Pulse Ox 97% ; bp 07:15 Body Mass Index 36.62 (122.47 kg, 182.88 cm) aa5 MDM: 10:15 Patient medically screened. kdr 10:23 Data reviewed: vital signs, nurses notes, lab test result(s), EKG, radiologic studies. kdr Counseling: I had a detailed discussion with the patient and/or guardian regarding: the historical points, exam findings, and any diagnostic results supporting the discharge/admit diagnosis, lab results, radiology results, the need for outpatient follow up. 08/28 07:12 Order name: Basic Metabolic Panel; Complete Time: 09:38 kdr 08/28 07:12 Order name: CBC with Diff; Complete Time: 08:51 kdr 08/28 07:12 Order name: LFT's; Complete Time: 09:38 kdr 08/28 07:12 Order name: Magnesium; Complete Time: : [facility] 08/28 07:12 Order name: NT PRO-BNP; Complete Time: : [facility] 08/28 07:12 Order name: PT-INR; Complete Time: 08:51 [facility] 08/28 07:12 Order name: Troponin (emerg Dept Use Only); Complete Time: : [facility] 08/28 07:12 Order name: XRAY Chest (1 view); Complete Time: : [facility] 08/28 07:12 Order name: EKG; Complete Time: 07: [facility] 08/28 07:12 Order name: Cardiac monitoring; Complete Time: : [facility] 08/28 07:12 Order name: EKG - Nurse/Tech; Complete Time: [facility] 08/28 07:12 Order name: IV Saline Lock; Complete Time: [facility] 08/28 07:12 Order name: Labs collected and sent; Complete Time: [facility] 08/28 07:12 Order name: O2 Per Protocol; Complete Time: [facility] 08/28 07:12 Order name: O2 Sat Monitoring; Complete Time: kdr EC:08 Rate is 89 beats/min. Rhythm is irregularly irregular. QRS Rector is Normal. [place] interval kdr is normal. QRS interval is normal. Clinical impression: Atrial Fibrillation. Administered Medications: No medications were administered Disposition: 08/28/18 10:15 Discharged to Home. Impression: Palpitations. - Condition is Fair. - Discharge Instructions: Palpitations, [id number], Atrial Fibrillation, [id number]. - Medication Reconciliation Form, Thank You Letter form. - Follow up: Private Physician; When: 2 - 3 days; Reason: If symptoms return, Further diagnostic work-up, Recheck today's complaints, Continuance of care, Re-evaluation by your physician. - Problem is an acute exacerbation. - Symptoms have improved. Signatures: Dispatcher [employer] EDMS Yasmany Otoole MD MD kdr Lorna Rob, RN RN aa5 Rodger Ray RN RN hj Peltier, Brian RN RN bp Corrections: (The following items were deleted from the chart) 10:46 10:15 08/28/2018 10:15 Discharged to Home. Impression: Palpitations. Condition is Fair. bp Forms are Medication Reconciliation Form, Thank You Letter, Antibiotic Education, Prescription Opioid Use. Follow up: Private Physician; When: 2 - 3 days; Reason: If symptoms return, Further diagnostic work-up, Recheck today's complaints, Continuance of care, Re-evaluation by your physician. Problem is an acute exacerbation. Symptoms have improved. kdr
--- NOTE | 2018-08-28 14:20 | EKG ---
Test Date: 2018-08-28 Test Time: 07:23:05 [employer]ilient Tile Installer: NATALI MEASUREMENT RESULTS: Intervals: Rate: 91 MS: QRSD: 90 QT: 364 QTc: 447 [place]: P: MS: QRS: 47 T: 67 INTERPRETIVE STATEMENTS: Atrial fibrillation Abnormal ECG Compared to ECG 10/18/2017 14:14:47 Sinus rhythm no longer present Electronically Signed On 08-28-18 14:19:23 CDT by Miky Quinones
== END 2018-08-28 10:46 | disposition home or self-care (01) ==
LOC: ER 07:07
DX: R00.2 Palpitations (principal); I48.91 Unspecified atrial fibrillation; E11.9 Type 2 diabetes mellitus without complications; I10 Essential (primary) hypertension; I25.2 Old myocardial infarction; C61 Malignant neoplasm of prostate; J44.9 Chronic obstructive pulmonary disease, unspecified
CPT/HCPCS: 36415; 71045; 80048; 80076; 83735; 83880; 84484; 85025; 85610; 93005; 99284

== ENCOUNTER 2018-11-29 14:29 | Emergency (ER) | payer OTHER ==
[2018-11-29] MEDS ORDERED: LEVALBUTEROL 1.25 MG/3 ML NEB ONE (15:03)
[2018-11-29] MEDS ORDERED: METHYLPREDNISOLONE 125 MG INJ ONE (15:03)
[2018-11-29 15:08] LABS: Absolute Lymphocytes (CBC) 2.7 K/uL (0.7-4.9); Lymphocytes % 27.2 % (15.3-44.8); MPV 8.9 fL (7.6-11.3); RBC Red Blood Cell Count 4.07 M/uL (4.33-5.43)
--- NOTE | 2018-11-29 15:09 | RAD REPORT ---
EXAM DESCRIPTION: RAD - Chest Single View - 11/29/2018 3:02 pm CLINICAL HISTORY: CHEST PAIN Chest pain. COMPARISON: Chest Single View dated 08/28/2018; Chest Single View dated 10/18/2017; Chest Pa And Lat ( 2 Views) dated 08/28/2017; Chest Single View dated 10/18/2016 FINDINGS: Portable technique limits examination quality. The lungs are grossly clear. The heart is mildly prominent in size. No displaced fractures. IMPRESSION: No acute intrathoracic process suspected.
[2018-11-29 15:24] LABS: BUN Blood Urea Nitrogen 11 mg/dL (7-18); Bicarbonate 29 mmol/L (21-32); Glucose Level 152 mg/dL (74-106); NT PRO-BNP 193 pg/mL (<450); Potassium 3.7 mmol/L (3.5-5.1); Sodium Level 139 mmol/L (136-145); Troponin (Emerg Dept Use Only) < 0.02 ng/mL (0.0-0.045)
--- NOTE | 2018-11-29 15:47 | EKG ---
Test Date: 2018-11-29 Test Time: 14:34:25 [employer] Product Consultant: SHANEKA MEASUREMENT RESULTS: Intervals: Rate: 81 [place]: 160 QRSD: 84 QT: 384 QTc: 446 [place]: P: 76 KS: 160 QRS: 62 T: 63 INTERPRETIVE STATEMENTS: Normal sinus rhythm Normal ECG Compared to ECG 08/28/2018 07:23:05 Atrial fibrillation no longer present Electronically Signed On 11-29-18 15:46:40 CDT by Miky Quinones
--- NOTE | 2018-11-29 15:52 | EDPHYS ---
Physician Documentation [facility] Name: Stefano Celeste Age: 78 yrs Sex: Male : 1940 Arrival Date: 11/29/2018 Time: 14:31 Bed 3 Private MD: ED Physician Lico Trinidad HPI: 11/29 15:43 This 78 yrs old Male presents to ER via Wheelchair with complaints of Chest rn Pain. 15:43 This 78 yrs old Male presents to ER via Wheelchair with complaints of sob. rn 15:43 The patient has shortness of breath at rest. Onset: The symptoms/episode began/occurred rn today. Duration: The symptoms are continuous, but are steadily getting better. The patient's shortness of breath is aggravated by nothing, is alleviated by cpap. Severity of symptoms: At their worst the symptoms were. The patient has experienced similar episodes in the past. Reports outside in heat, thinks got overheated, felt sob, felt better with CPAP and breathing treatment, felt a little chest pressure, but nothing like previous heart attacks, feels more like breathing trouble. No trauma. No fever/cough. No radiation of chest discomfort.. Historical: - Allergies: 14:35 VENLAFAXINE; bp - PMHx: 14:35 Atrial Fib; cardiac stents; COPD; Diabetes - NIDDM; Hypertension; Myocardial bp infarction; pituitary tumor (removed); Prostate Cancer; - Immunization history:: Adult Immunizations up to date. - Social history:: Smoking status: Patient/guardian denies using tobacco. - Ebola Screening: : No symptoms or risks identified at this time. - Family history:: not pertinent. - Hospitalizations: : No recent hospitalization is reported. ROS: 15:43 Constitutional: Negative for fever, chills, and weight loss, Eyes: Negative for injury, rn pain, redness, and discharge, Neck: Negative for injury, pain, and swelling, Cardiovascular: + chest discomfort Respiratory: + sob, negative for cough Abdomen/GI: Negative for abdominal pain, nausea, vomiting, diarrhea, and constipation, MS/Extremity: Negative for injury and deformity, Skin: Negative for injury, rash, and discoloration, Neuro: Negative for headache, weakness, numbness, tingling, and seizure. Exam: 15:43 Constitutional: This is a well developed, well nourished patient who is awake, alert, rn appears anxious Head/Face: Normocephalic, atraumatic. Eyes: Pupils equal round and reactive to light, extra-ocular motions intact. Lids and lashes normal. Conjunctiva and sclera are non-icteric and not injected. Cornea within normal limits. Periorbital areas with no swelling, redness, or edema. ENT: MMM, no stridor Cardiovascular: Regular rate, no murmur Respiratory: Clear bilateral breath sounds, faint wheezing, no retractions, speaking full sentences Abdomen/GI: soft, non-tender MS/ Extremity: Pulses equal, no cyanosis. Neurovascular intact. Full, normal range of motion. Equal circumference. Neuro: Awake and alert, GCS 15, oriented to person, place, time, and situation. Cranial nerves II-XII grossly intact. Motor strength 5/5 in all extremities. Sensory grossly intact. Cerebellar exam normal. Vital Signs: 14:35 BP 145 / 89; Pulse 79; Resp 19; Temp 98; Pulse Ox 98% ; Weight 122.47 kg; Height 6 ft. bp (182.88 cm); 15:30 BP 157 / 70; Pulse 91; Resp 12; Pulse Ox 98% ; bp 16:04 BP 159 / 73; Pulse 88; Resp 17; Pulse Ox 97% ; bp 14:35 Body Mass Index 36.62 (122.47 kg, 182.88 cm) bp MDM: 14:31 Patient medically screened. rn 15:43 Differential diagnosis: Anemia Anxiety Reaction Chronic Obstructive Pulmonary Disease rn Myocardial Infarction Pneumothorax pulmonary edema. Data reviewed: vital signs, nurses notes, lab test result(s), EKG, radiologic studies, plain films, and as a result, I will admit patient. Counseling: I had a detailed discussion with the patient and/or guardian regarding: the historical points, exam findings, and any diagnostic results supporting the discharge/admit diagnosis, lab results, radiology results, the need for further work-up and treatment in the hospital. Response to treatment: the patient's symptoms have markedly improved after treatment, and as a result, I will admit patient. Refusal of service: The patient/guardian displays adequate decision making capability and despite a detailed discussion of alternatives, benefits, risks, and consequences refuses: Admission to the hospital for further work-up and treatment. 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 Return precautions given and risks of leaving without admission explained, still wants to leave.. 11/29 14:41 Order name: Basic Metabolic Panel; Complete Time: 15:25 rn 11/29 14:41 Order name: CBC with Diff; Complete Time: 15:15 11/29 14:41 Order name: NT PRO-BNP; Complete Time: 15:25 rn 11/29 14:41 Order name: Troponin (emerg Dept Use Only); Complete Time: 15:25 rn 11/29 14:41 Order name: XRAY Chest (1 view); Complete Time: 15:15 11/29 14:31 Order name: EKG; Complete Time: 14:33 11/29 14:41 Order name: Cardiac monitoring; Complete Time: 14:44 11/29 14:41 Order name: EKG - Nurse/Tech; Complete Time: 14:44 11/29 14:41 Order name: IV Saline Lock; Complete Time: 14:59 11/29 14:41 Order name: Labs collected and sent; Complete Time: 14:59 11/29 14:41 Order name: O2 Per Protocol; Complete Time: 14:44 11/29 14:41 Order name: O2 Sat Monitoring; Complete Time: 14:44 rn Administered Medications: 14:45 Drug: Xopenex (3) 1.25 mg Route: Inhalation; 15:24 Follow up: Response: No adverse reaction 14:55 Drug: SOLU-Medrol 125 mg Route: IVP; Site: right antecubital; 15:24 Follow up: Response: No adverse reaction Disposition: 11/29/18 15:51 Discharged to Home. Impression: Chronic obstructive pulmonary disease, unspecified, Chest pain, unspecified. - Condition is Stable. - Discharge Instructions: Nonspecific Chest Pain, Chronic Obstructive Pulmonary Disease. - Medication Reconciliation Form, Thank You Letter, Antibiotic Education, Prescription Opioid Use form. - Follow up: Private Physician; When: As needed; Reason: Recheck today's complaints, Re-evaluation by your physician. - Problem is new. - Symptoms have improved. Signatures: Dispatcher [employer] EDMS Lico Trinidad MD MD rn Joaquin, Henry, RN RN hj Peltier, Brian RN RN bp Corrections: (The following items were deleted from the chart) 16:22 15:51 11/29/2018 15:51 Discharged to Home. Impression: Chronic obstructive pulmonary hj disease, unspecified; Chest pain, unspecified. Condition is Stable. Forms are Medication Reconciliation Form, Thank You Letter, Antibiotic Education, Prescription Opioid Use. Follow up: Private Physician; When: As needed; Reason: Recheck today's complaints, Re-evaluation by your physician. Problem is new. Symptoms have improved. rn
--- NOTE | 2018-11-29 15:52 | ER ---
Nurse's Notes [facility] Name: Stefano Celeste Age: 78 yrs Sex: Male : 1940 Arrival Date: 11/29/2018 Time: 14:31 Bed 3 Private MD: Diagnosis: Chronic obstructive pulmonary disease, unspecified;Chest pain, unspecified Presentation: 11/29 14:33 Presenting complaint: Patient states: "I GOT TOO HOT OUTSIDE, THEN MY PRESSURE WENT TOO bp HIGH". Transition of care: patient was not received from another setting of care. Onset of symptoms is unknown. Risk Assessment: Do you want to hurt yourself or someone else? Patient reports no desire to harm self or others. Initial Sepsis Screen: Does the patient meet any 2 criteria? No. Patient's initial sepsis screen is negative. Does the patient have a suspected source of infection? No. Patient's initial sepsis screen is negative. Care prior to arrival: None. 14:33 Method Of Arrival: Wheelchair bp 14:33 Acuity: IZABEL 2 bp Triage Assessment: 14:35 General: Appears distressed, comfortable, obese, Behavior is cooperative, appropriate bp for age, anxious. Pain: Complains of pain in chest. EENT: No deficits noted. Neuro: No deficits noted. Cardiovascular: Rhythm is sinus rhythm. Respiratory: Reports shortness of breath. GI: No signs and/or symptoms were reported involving the gastrointestinal system. : No signs and/or symptoms were reported regarding the genitourinary system. Derm: No deficits noted. Musculoskeletal: No deficits noted. Historical: - Allergies: 14:35 VENLAFAXINE; bp - PMHx: 14:35 Atrial Fib; cardiac stents; COPD; Diabetes - NIDDM; Hypertension; Myocardial bp infarction; pituitary tumor (removed); Prostate Cancer; - Immunization history:: Adult Immunizations up to date. - Social history:: Smoking status: Patient/guardian denies using tobacco. - Ebola Screening: : No symptoms or risks identified at this time. - Family history:: not pertinent. - Hospitalizations: : No recent hospitalization is reported. Screenin:36 Abuse screen: Denies threats or abuse. Denies injuries from another. Nutritional bp screening: No deficits noted. Tuberculosis screening: No symptoms or risk factors identified. Fall Risk None identified. Assessment: 14:36 General: SEE TRIAGE NOTE. bp 16:22 Pain: Pain does not radiate. Pain began. hj Vital Signs: 14:35 BP 145 / 89; Pulse 79; Resp 19; Temp 98; Pulse Ox 98% ; Weight 122.47 kg; Height 6 ft. bp (182.88 cm); 15:30 BP 157 / 70; Pulse 91; Resp 12; Pulse Ox 98% ; bp 16:04 BP 159 / 73; Pulse 88; Resp 17; Pulse Ox 97% ; bp 14:35 Body Mass Index 36.62 (122.47 kg, 182.88 cm) bp ED Course: 14:31 Patient arrived in ED. hj 14:31 Lico Trinidad MD is Attending Physician. rn 14:33 Pierre Alvares, CHERYL is Primary Nurse. bp 14:34 Triage completed. bp 14:35 Arm band placed on. bp 14:36 Patient has correct armband on for positive identification. Bed in low position. Call bp light in reach. Side rails up X2. Adult w/ patient. ballpoint pens assembler on. Pulse ox on. NIBP on. 14:55 Initial lab(s) drawn, by nm, sent to lab. Inserted saline lock: 20 gauge in right hj antecubital area, using aseptic technique. Blood collected. 15:01 XRAY Chest (1 view) In Process Unspecified. EDMS 16:21 No provider procedures requiring assistance completed. IV discontinued, intact, hj bleeding controlled, No redness/swelling at site. Pressure dressing applied. Patient maintains SpO2 saturation greater than 95% on room air. Administered Medications: 14:45 Drug: Xopenex (3) 1.25 mg Route: Inhalation; hj 15:24 Follow up: Response: No adverse reaction hj 14:55 Drug: SOLU-Medrol 125 mg Route: IVP; Site: right antecubital; hj 15:24 Follow up: Response: No adverse reaction hj Outcome: 15:51 Discharge ordered by . rn 16:21 Discharged to home ambulatory, with family. hj 16:21 Condition: stable 16:21 Discharge instructions given to patient, family, Instructed on discharge instructions, follow up and referral plans. Demonstrated understanding of instructions, follow-up care. 16:22 Patient left the ED. Signatures: Dispatcher [employer] EDMS Trinidad, Lico, MD MD rn Cory, Rodger, RN RN hj Giorgio, Pierre, RN RN bp
== END 2018-11-29 16:22 | disposition home or self-care (01) ==
LOC: ER 14:29
DX: J44.9 Chronic obstructive pulmonary disease, unspecified (principal); R07.9 Chest pain, unspecified; I48.91 Unspecified atrial fibrillation; E11.9 Type 2 diabetes mellitus without complications; I10 Essential (primary) hypertension; C61 Malignant neoplasm of prostate; I25.2 Old myocardial infarction; Z88.8 Allergy status to other drugs, medicaments and biological substances
CPT/HCPCS: 36415; 71045; 80048; 83880; 84484; 85025; 93005; 96374; 99285; J2930

== ENCOUNTER 2018-11-29 18:17 | Emergency (ER) | payer OTHER ==
--- NOTE | 2018-11-29 18:43 | EDPHYS ---
Physician Documentation [facility] Name: Stefano Celeste Age: 78 yrs Sex: Male : 1940 Arrival Date: 11/29/2018 Time: 18:22 Bed 28 Private MD: ED Physician Rambo Mcguire HPI: 11/29 18:29 This 78 yrs old Male presents to ER via Wheelchair with complaints of Chest rn Pain > 30 y/o. 18:29 The patient or guardian reports chest pain that is located primarily in the substernal rn area. Onset: today. The pain does not radiate. Associated signs and symptoms: Pertinent positives: shortness of breath, Pertinent negatives: abdominal pain. The chest pain is described as a heaviness. Duration: The patient or guardian reports multiple episodes, that are intermittent. Modifying factors: The symptoms are alleviated by nothing. the symptoms are aggravated by nothing. Severity of pain: At its worst the pain was mild in the emergency department the pain has improved. The patient has not experienced similar symptoms in the past. The patient has been recently seen at the [facility]. Just seen by me a few hours earlier, recommended admission, left, now returns with another episode of chest pain. . Historical: - Allergies: 18:24 VENLAFAXINE; aj - Home Meds: 18:24 atorvastatin 80 mg Oral tab 1 tab once daily [Active]; hydrocortisone 10 mg Oral tab 1 aj tab 2 times per day [Active]; levothyroxine 125 mcg tab 1 tab once daily [Active]; lisinopril 2.5 mg Oral tab 1 tab once daily [Active]; Melatonin Oral [Active]; metoprolol tartrate 25 mg Oral tab 1 tab 2 times per day [Active]; rivaroxaban 20 mg Oral 1 tab once daily [Active]; Tylenol PM Extra Strength Oral [Active]; Vitamin D Oral [Active]; vitamin E 400 unit Oral cap [Active]; - PMHx: 18:24 Atrial Fib; cardiac stents; COPD; Diabetes - NIDDM; Hypertension; Myocardial aj infarction; pituitary tumor (removed); Prostate Cancer; - Immunization history:: Adult Immunizations up to date. - Social history:: Smoking status: Patient/guardian denies using tobacco. - Ebola Screening: : Patient negative for fever greater than or equal to 101.5 degrees Fahrenheit, and additional compatible Ebola Virus Disease symptoms Patient denies exposure to infectious person Patient denies travel to an Ebola-affected area in the 21 days before illness onset No symptoms or risks identified at this time. - Family history:: not pertinent. - Hospitalizations: : No recent hospitalization is reported. ROS: 18:37 Constitutional: Negative for fever, chills, and weight loss, Eyes: Negative for injury, rn pain, redness, and discharge, Neck: Negative for injury, pain, and swelling, Cardiovascular: + chest pain and sob Respiratory: Negative for cough, and pleuritic chest pain, Abdomen/GI: Negative for abdominal pain, nausea, vomiting, diarrhea, and constipation, MS/Extremity: Negative for injury and deformity, Skin: Negative for injury, rash, and discoloration, Neuro: Negative for headache, weakness, numbness, tingling, and seizure. Exam: 18:37 Constitutional: This is a well developed, well nourished patient who is awake, alert, rn appears anxious Head/Face: Normocephalic, atraumatic. Eyes: Pupils equal round and reactive to light, extra-ocular motions intact. Lids and lashes normal. Conjunctiva and sclera are non-icteric and not injected. Cornea within normal limits. Periorbital areas with no swelling, redness, or edema. Cardiovascular: tachycardic, regular Respiratory: speaking full sentences, no wheezing Abdomen/GI: Soft, non-tender MS/ Extremity: Pulses equal, no cyanosis. Neurovascular intact. Full, normal range of motion. Equal circumference. Neuro: Awake and alert, GCS 15, oriented to person, place, time, and situation. Cranial nerves II-XII grossly intact. Motor strength 5/5 in all extremities. Sensory grossly intact. Cerebellar exam normal. Normal gait. Vital Signs: 18:24 BP 144 / 71; Pulse 109; Resp 18; Temp 98.0; Pulse Ox 95% on R/A; Weight 122.47 kg; aj Height 6 ft. 0 in. (182.88 cm); 21:30 BP 154 / 66; Pulse 79; Resp 16; Pulse Ox 95% ; wh 22:52 BP 124 / 67; Pulse 79; Resp 18; Pulse Ox 96% on R/A; wh 23:30 BP 134 / 63; Pulse 80; Resp 18; Pulse Ox 92% on R/A; 11/30 00:23 BP 135 / 64; Pulse 82; Resp 18; Pulse Ox 96% on R/A; 11/29 18:24 Body Mass Index 36.62 (122.47 kg, 182.88 cm) MDM: 11/29 18:27 Patient medically screened. rn 18:37 Differential diagnosis: acute myocardial infarction, acute pericarditis, anxiety, rn costochondritis, gastroesophageal reflux disease (GERD), pleurisy, pneumothorax. Data reviewed: vital signs, nurses notes, old medical records, lab test result(s), EKG, and as a result, I will admit patient. Counseling: I had a detailed discussion with the patient and/or guardian regarding: the historical points, exam findings, and any diagnostic results supporting the discharge/admit diagnosis, lab results, radiology results, the need for further work-up and treatment in the hospital. Admission orders: after a detailed discussion of the patient's condition and case, the admit orders are written by me. 11/29 18:37 Order name: Troponin (emerg Dept Use Only); Complete Time: 19:32 rn 11/29 18:37 Order name: EKG; Complete Time: 18:38 rn 11/29 18:37 Order name: EKG - Nurse/Tech; Complete Time: 19:00 rn Administered Medications: 19:19 Drug: Aspirin Chewable Tablet 324 mg Route: PO; 23:57 Follow up: Response: No adverse reaction Disposition: 11/29/18 19:32 Transfer ordered to [facility]. Diagnosis are Other chest pain, Type 2 diabetes mellitus, Essential (primary) hypertension. - Reason for transfer: Higher level of care. - Accepting physician is to sd. - Condition is Stable. - Problem is new. - Symptoms have improved. Signatures: Dispatcher [employer] EDMS Terrie Bang RN RN aj Anderson, Corey, MD MD cha Nieto, Roman, MD MD rn Habalo, Winsy Corrections: (The following items were deleted from the chart) 19:30 18:42 Hospitalization Ordered by Tono Douglass DO for Observation. Preliminary [facility] diagnosis is Chest pain, unspecified. Bed requested for Telemetry/MedSurg (observation). Status is Observation. Condition is Stable. Problem is new. Symptoms are unchanged. UTI on Admission? No. rn 11/30 01:00 11/29 19:32 11/29/2018 19:32 Transfer ordered to [facility]. Diagnosis is Other chest pain; Type 2 diabetes mellitus; Essential (primary) hypertension. Reason for transfer: Higher level of care. Accepting physician is to sd. Condition is Stable. Problem is new. Symptoms have improved. zulema
--- NOTE | 2018-11-29 18:43 | ER ---
Nurse's Notes [facility] Name: Stefano Celeste Age: 78 yrs Sex: Male : 1940 Arrival Date: 11/29/2018 Time: 18:22 Bed 28 Private MD: Diagnosis: Other chest pain;Type 2 diabetes mellitus;Essential (primary) hypertension Presentation: 11/29 18:22 Presenting complaint: Patient states: Chest pain that is similar to chest pain patient aj had when he was seen in this ER a few hours ago and discharged. Transition of care: patient was not received from another setting of care. Onset of symptoms was November 29, 2018. Risk Assessment: Do you want to hurt yourself or someone else? Patient reports no desire to harm self or others. Initial Sepsis Screen: Does the patient meet any 2 criteria? No. Patient's initial sepsis screen is negative. Does the patient have a suspected source of infection? No. Patient's initial sepsis screen is negative. Care prior to arrival: None. 18:22 Method Of Arrival: Wheelchair aj 18:22 Acuity: IZABEL 3 aj Triage Assessment: 18:24 General: Appears in no apparent distress. comfortable, Behavior is calm, cooperative, aj appropriate for age. Pain: Complains of pain in chest. Neuro: Level of Consciousness is awake, alert, obeys commands, Oriented to person, place, time, situation, Appropriate for age. Cardiovascular: Reports chest pain, Capillary refill < 3 seconds in bilateral fingers Patient's skin is warm and dry. GI: Reports diarrhea. Derm: Skin is intact, is healthy with good turgor, Skin is pink, warm \T\ dry. normal. Historical: - Allergies: 18:24 VENLAFAXINE; aj - Home Meds: 18:24 atorvastatin 80 mg Oral tab 1 tab once daily [Active]; hydrocortisone 10 mg Oral tab 1 aj tab 2 times per day [Active]; levothyroxine 125 mcg tab 1 tab once daily [Active]; lisinopril 2.5 mg Oral tab 1 tab once daily [Active]; Melatonin Oral [Active]; metoprolol tartrate 25 mg Oral tab 1 tab 2 times per day [Active]; rivaroxaban 20 mg Oral 1 tab once daily [Active]; Tylenol PM Extra Strength Oral [Active]; Vitamin D Oral [Active]; vitamin E 400 unit Oral cap [Active]; - PMHx: 18:24 Atrial Fib; cardiac stents; COPD; Diabetes - NIDDM; Hypertension; Myocardial aj infarction; pituitary tumor (removed); Prostate Cancer; - Immunization history:: Adult Immunizations up to date. - Social history:: Smoking status: Patient/guardian denies using tobacco. - Ebola Screening: : Patient negative for fever greater than or equal to 101.5 degrees Fahrenheit, and additional compatible Ebola Virus Disease symptoms Patient denies exposure to infectious person Patient denies travel to an Ebola-affected area in the 21 days before illness onset No symptoms or risks identified at this time. - Family history:: not pertinent. - Hospitalizations: : No recent hospitalization is reported. Screenin:30 Abuse screen: Denies threats or abuse. Denies injuries from another. Nutritional wh screening: No deficits noted. Tuberculosis screening: No symptoms or risk factors identified. Fall Risk None identified. Assessment: 19:30 General: Appears in no apparent distress. comfortable, Behavior is calm, cooperative, wh appropriate for age. Pain: Complains of pain in chest Pain does not radiate. Pain currently is 4 out of 10 on a pain scale. Quality of pain is described as aching, Pain began today. Neuro: Level of Consciousness is awake, alert, obeys commands, Oriented to person, place, time, situation, Appropriate for age. Cardiovascular: Reports chest pain, Heart tones S1 S2 Capillary refill < 3 seconds Rhythm is regular. Respiratory: Airway is patent Respiratory effort is even, unlabored, Respiratory pattern is regular, symmetrical, Breath sounds are clear bilaterally. GI: Abdomen is flat, non-distended, Abd is soft and non tender X 4 quads. : No signs and/or symptoms were reported regarding the genitourinary system. EENT: No signs and/or symptoms were reported regarding the EENT system. Derm: Skin is intact, is healthy with good turgor, Skin is pink, warm \T\ dry. normal. Musculoskeletal: Range of motion: intact in all extremities. 20:51 Reassessment: Patient appears in no apparent distress at this time. Patient is alert, wh oriented x 3, equal unlabored respirations, skin warm/dry/pink. Patient denies pain at this time. 21:20 Reassessment: After long discussion with pt, myself and Dr Douglass pt now understands fc that we [facility] if there is a bed at there avail for him. If the [facility] tells us that there is no beds available then pt will be admitted here. Pt very frustrated but Dr Douglass explained that it had to be done this was due to him having [facility] benefits. Pt finally stated that he understood and would just lay back in bed until a someone tells him what can be done. 21:49 Reassessment: Spoke with household appliance repairer who states that Dr Escobar in the ER is fc currently reviewing pts records but that they are very busy and that she would contact us back when he was done looking at them. 22:00 Reassessment: Pt is aware that is reviewing records. Pt given recliner to be made fc more comfortable. 22:54 Reassessment: Patient appears in no apparent distress at this time. Patient is alert, wh oriented x 3, equal unlabored respirations, skin warm/dry/pink. Patient denies pain at this time. 23:48 Reassessment: Patient appears in no apparent distress at this time. Patient is alert, wh oriented x 3, equal unlabored respirations, skin warm/dry/pink. Patient denies pain at this time. 11/30 00:22 Reassessment: Patient appears in no apparent distress at this time. Patient is alert, wh oriented x 3, equal unlabored respirations, skin warm/dry/pink. Patient denies pain at this time. Vital Signs: 11/29 18:24 BP 144 / 71; Pulse 109; Resp 18; Temp 98.0; Pulse Ox 95% on R/A; Weight 122.47 kg; aj Height 6 ft. 0 in. (182.88 cm); 21:30 BP 154 / 66; Pulse 79; Resp 16; Pulse Ox 95% ; wh 22:52 BP 124 / 67; Pulse 79; Resp 18; Pulse Ox 96% on R/A; wh 23:30 BP 134 / 63; Pulse 80; Resp 18; Pulse Ox 92% on R/A; wh 11/30 00:23 BP 135 / 64; Pulse 82; Resp 18; Pulse Ox 96% on R/A; 11/29 18:24 Body Mass Index 36.62 (122.47 kg, 182.88 cm) ED Course: 07/24 18:22 Patient arrived in ED. 18:23 Triage completed. 18:24 Arm band placed on right wrist. Patient placed in an exam room. aj 18:27 Lico Trinidad MD is Attending Physician. rn 18:35 Porsche May is Primary Nurse. 18:41 Tono Douglass DO is Hospitalizing Provider. rn 19:15 Inserted saline lock: 20 gauge in left antecubital area, using aseptic technique. Blood collected. 19:17 Attending Physician role handed off by Lico Trinidad MD [facility] 19:17 Rambo Mcguire MD is Attending Physician. [facility] 19:30 Patient has correct armband on for positive identification. Bed in low position. Call light in reach. Side rails up X 1. awake overnight monitor on. Pulse ox on. NIBP on. 19:30 Patient maintains SpO2 saturation greater than 95% on room air. 11/30 00:58 No provider procedures requiring assistance completed. Patient transferred, IV remains in place. Administered Medications: 11/29 19:19 Drug: Aspirin Chewable Tablet 324 mg Route: PO; 23:57 Follow up: Response: No adverse reaction Outcome: 18:42 Decision to Hospitalize by Provider. rn 19:32 ER care complete, transfer ordered by . [facility] 11/30 00:58 Transferred by ground EMS to [facility] Transfer form completed. X-rays sent w/ patient. Note: Report called to Justin Arias RN Condition: good Instructed on the need for transfer. 01:00 Patient left the ED. Signatures: Terrie Bang RN Rambo Oscar MD MD cha Chretien, Felicia, RN RN fc Nieto, Roman, MD MD rn Habalo, Winsy
[2018-11-29] MEDS ORDERED: ASPIRIN 81 MG CHEWABLE TABLET ONE (19:34)
--- NOTE | 2018-11-30 11:23 | EKG ---
Test Date: 2018-11-29 Test Time: 18:41:40 [employer]: LELE MEASUREMENT RESULTS: Intervals: Rate: 93 NC: 176 QRSD: 88 QT: 376 QTc: 467 [place]: P: 53 NC: 176 QRS: 58 T: 72 INTERPRETIVE STATEMENTS: Normal sinus rhythm Normal ECG Compared to ECG 11/29/2018 14:34:25 No significant changes Electronically Signed On 11-30-18 11:21:14 CDT by Jos Goel
== END 2018-11-30 01:00 ==
LOC: ER 18:17
DX: R07.89 Other chest pain (principal); E11.9 Type 2 diabetes mellitus without complications; I10 Essential (primary) hypertension; I48.91 Unspecified atrial fibrillation; J44.9 Chronic obstructive pulmonary disease, unspecified; C61 Malignant neoplasm of prostate; I25.2 Old myocardial infarction; Z88.8 Allergy status to other drugs, medicaments and biological substances
CPT/HCPCS: 36415; 84484; 93005; 99285

== ENCOUNTER 2018-12-07 10:48 | Emergency (ER) | payer OTHER ==
[2018-12-07] MEDS ORDERED: NA CHLORIDE 0.9% 1,000 ML ONE (11:23)
[2018-12-07 11:51] LABS: Absolute Lymphocytes (CBC) 1.1 K/uL (0.7-4.9); Basophils % 0.5 % (0-1.3); Hematocrit 40.5 % (39.6-49.0); Lymphocytes % 8.6 % (15.3-44.8); MPV 9.2 fL (7.6-11.3); RBC Red Blood Cell Count 4.42 M/uL (4.33-5.43)
[2018-12-07 11:54] LABS: Protime INR 1.02
[2018-12-07 12:01] LABS: ALT/SGPT 39 U/L (12-78); AST/SGOT 27 U/L (15-37); Albumin 3.7 g/dL (3.4-5.0); Alkaline Phosphatase 52 U/L (45-117); BUN Blood Urea Nitrogen 16 mg/dL (7-18); Bicarbonate 28 mmol/L (21-32); Bilirubin Direct 0.2 mg/dL (0-0.2); Bilirubin Total 0.7 mg/dL (0.2-1.0); CKMB Creatine Kinase MB 1.2 ng/mL (0.3-3.6); Creatine Phosphokinase 75 U/L (39-308); Glucose Level 118 mg/dL (74-106); Lipase 131 U/L (73-393); Potassium 4.6 mmol/L (3.5-5.1); Protein, Total 7.3 g/dL (6.4-8.2); Sodium Level 135 mmol/L (136-145); Troponin (Emerg Dept Use Only) < 0.02 ng/mL (0.0-0.045)
--- NOTE | 2018-12-07 12:04 | RAD REPORT ---
EXAM DESCRIPTION: Stew Single View12/07/2018 11:56 am CLINICAL HISTORY: Fever COMPARISON: November 29, 2018 FINDINGS: The lungs appear clear of acute infiltrate. The heart is normal size IMPRESSION: No acute abnormalities displayed
[2018-12-07 13:11] LABS: Urine Blood NEGATIVE (NEG); Urine Glucose NEGATIVE (NEG); Urine Protein NEGATIVE (NEG); Urine Specific Gravity 1.015 (1.005-1.030)
[2018-12-07 13:15] LABS: Urine Bacteria NONE SEEN /HPF (NONE SEEN); Urine RBC <5 /HPF (NONE SEEN)
[2018-12-07 13:16] LABS: Urine Culture Reflex Order NOT NEEDED
[2018-12-07] MEDS ORDERED: ACETAMINOPHEN 500 MG TAB ONE (15:56)
--- NOTE | 2018-12-07 17:02 | RAD REPORT ---
EXAM DESCRIPTION: CT - Abdomen Pelvis W Contrast - 12/07/2018 4:36 pm CLINICAL HISTORY: Abdominal pain/ vomiting COMPARISON: none. TECHNIQUE: Computed axial tomography of the abdomen pelvis was obtained. 100 cc Isovue-300 was admin istered intravenously. Oral contrast was not requested which limits evaluation of bowel. All CT scans are performed using dose optimization technique as appropriate and may include automated exposure control or mA/KV adjustment according to patient size. FINDINGS: The liver, spleen, pancreas, adrenal and kidneys appear unremarkable. There is no evidence of diverticulitis. Normal appendix Fluid-filled loops of mildly dilated jejunum and ileum are present. The distal ileum is decompressed. Trace amount of free fluid Prostate gland is mildly enlarged The most superior slice demonstrates a 5 millimeter nodule within the right middle lobe IMPRESSION: These findings are suggestive of a partial small bowel obstruction. An enteritis is anot her consideration. This should be monitored on a followup abdominal plain film series 5 millimeter right middle lobe nodule. Followup CT chest in 6 months recommended
--- NOTE | 2018-12-07 17:28 | EDPHYS ---
Physician Documentation [facility] Name: Stefano Celeste Age: 78 yrs Sex: Male : 1940 Arrival Date: 12/07/2018 Time: 10:49 Bed 20 Private MD: ED Physician Yasmany Otoole HPI: 12/07 17:28 This 78 yrs old Male presents to ER via Ambulatory with complaints of kdr Diarrhea. 17:28 The patient presents to the emergency department with nausea, that is mild, vomiting, 1 kdr times since the onset of symptoms, diarrhea, that is continuous, that is intermittent, abdominal pain, of the abdomen diffusely. Onset: The symptoms/episode began/occurred suddenly, this morning, today. Possible causes: unknown. The symptoms are aggravated by nothing. The symptoms are alleviated by nothing. Associated signs and symptoms: Pertinent positives: abdominal pain, diarrhea, nausea, vomiting, Pertinent negatives: anorexia, constipation, dysuria, fever. Severity of symptoms: At their worst the symptoms were mild moderate just prior to arrival, in the emergency department the symptoms have improved mildly. The patient has experienced similar episodes in the past, a few times, The patient states he had diarrhea on a recent admission but that it went untreated and resolved on its own. Today the diarrhea came back and has been continuous for some hours at home. He states that for some hours he could not get off of the toilet. The diarrhea has improved since . 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 - Social history:: Smoking status: Patient/guardian denies using tobacco. - Ebola Screening: : No symptoms or risks identified at this time. ROS: 17:28 Constitutional: Negative for fever, chills, and weight loss, Eyes: Negative for injury, kdr pain, redness, and discharge, ENT: Negative for injury, pain, and discharge, Neck: Negative for injury, pain, and swelling, Cardiovascular: Negative for chest pain, palpitations, and edema, Respiratory: Negative for shortness of breath, cough, wheezing, and pleuritic chest pain, Back: Negative for injury and pain, : Negative for injury, bleeding, discharge, and swelling, MS/Extremity: Negative for injury and deformity, Skin: Negative for injury, rash, and discoloration, Neuro: Negative for headache, weakness, numbness, tingling, and seizure activity. Psych: Negative for depression, anxiety, suicide ideation, homicidal ideation, and hallucinations, Allergy/Immunology: Negative for hives, rash, and allergies, Endocrine: Negative for neck swelling, polydipsia, polyuria, polyphagia, and marked weight changes, Hematologic/Lymphatic: Negative for swollen nodes, abnormal bleeding, and unusual bruising. 17:28 Abdomen/GI: Positive for abdominal pain, nausea, vomiting, and diarrhea, abdominal cramps, Negative for black/tarry stool, rectal pain, rectal bleeding, bowel incontinence. Exam: 17:28 Constitutional: This is a well developed, well nourished patient who is awake, alert, kdr and in no acute distress. Head/Face: Normocephalic, atraumatic. Eyes: Pupils equal round and reactive to light, extra-ocular motions intact. Lids and lashes normal. Conjunctiva and sclera are non-icteric and not injected. Cornea within normal limits. Periorbital areas with no swelling, redness, or edema. Neck: Trachea midline, no thyromegaly or masses palpated, and no cervical lymphadenopathy. Supple, full range of motion without nuchal rigidity, or vertebral point tenderness. No Meningismus. Chest/axilla: Normal chest wall appearance and motion. Nontender with no deformity. No lesions are appreciated. Cardiovascular: Regular rate and rhythm with a normal S1 and S2. No gallops, murmurs, or rubs. Normal PMI, no JVD. No pulse deficits. Respiratory: Lungs have equal breath sounds bilaterally, clear to auscultation and percussion. No rales, rhonchi or wheezes noted. No increased work of breathing, no retractions or nasal flaring. Back: No spinal tenderness. No costovertebral tenderness. Full range of motion. Skin: Warm, dry with normal turgor. Normal color with no rashes, no lesions, and no evidence of cellulitis. MS/ Extremity: Pulses equal, no cyanosis. Neurovascular intact. Full, normal range of motion. Neuro: Awake and alert, GCS 15, oriented to person, place, time, and situation. Cranial nerves II-XII grossly intact. Motor strength 5/5 in all extremities. Sensory grossly intact. Cerebellar exam normal. Normal gait. Psych: Awake, alert, with orientation to person, place and time. Behavior, mood, and affect are within normal limits. 17:28 Abdomen/GI: Inspection: distension, that is mild, obese Bowel sounds: diminished, in all quadrants, Palpation: soft, mild abdominal tenderness, in all quadrants. Vital Signs: 11:02 BP 137 / 59; Pulse 88; Resp 22 S; Temp 101.0(O); Pulse Ox 94% on R/A; Weight 120.2 kg aa5 (R); Height 6 ft. 0 in. (182.88 cm) (R); Pain 2/10; 12:03 BP 123 / 55; Pulse 78; Resp 21; Pulse Ox 98% on R/A; aj1 12:46 BP 127 / 59; Pulse 72; Resp 18; Pulse Ox 99% on R/A; aj1 13:40 BP 120 / 64; Pulse 77; Resp 21; Pulse Ox 95% on R/A; aj1 14:11 BP 136 / 53; Pulse 98; Resp 20; Pulse Ox 97% on R/A; aj1 15:16 BP 127 / 54; Pulse 72; Resp 18; Pulse Ox 96% on R/A; aj1 15:54 Temp 99.7(O); aj1 16:07 BP 127 / 67; Pulse 68; Resp 18; Pulse Ox 99% on R/A; aj1 17:08 BP 128 / 65; Pulse 72; Resp 18; Pulse Ox 95% on R/A; aj1 18:10 BP 126 / 55; Pulse 66; Resp 18; Temp 99.1(O); Pulse Ox 98% on R/A; aj1 19:18 BP 103 / 50; Pulse 63; Resp 17; Pulse Ox 99% on R/A; tr5 11:02 Body Mass Index 35.94 (120.20 kg, 182.88 cm) aa5 MDM: 17:28 Patient medically screened. kdr 17:28 Data reviewed: vital signs, nurses notes, lab test result(s), radiologic studies. kdr Counseling: I had a detailed discussion with the patient and/or guardian regarding: the historical points, exam findings, and any diagnostic results supporting the discharge/admit diagnosis, lab results, radiology results, the need to transfer to another facility. 12/07 11:16 Order name: Basic Metabolic Panel; Complete Time: 12:09 12/07 11:16 Order name: Blood Culture Adult (2) 12/07 11:16 Order name: CBC with Diff; Complete Time: 12:09 ss 12/07 11:16 Order name: Ckmb; Complete Time: 12:09 ss 12/07 11:16 Order name: CPK; Complete Time: 12:09 12/07 11:16 Order name: Lactate; Complete Time: 12:09 ss 12/07 11:16 Order name: LFT's; Complete Time: 12:09 12/07 11:16 Order name: Lipase; Complete Time: 12:09 12/07 11:16 Order name: Procalcitonin; Complete Time: 12:50 12/07 11:16 Order name: Protime (+inr); Complete Time: 12:09 12/07 11:16 Order name: Ptt, Activated; Complete Time: 12: 12/07 11:16 Order name: Troponin (emerg Dept Use Only); Complete Time: 12:09 12/07 11:16 Order name: Urine Microscopic Only; Complete Time: 14:21 12/07 12:09 Order name: Stool Culture [facility] 12/07 11:16 Order name: Chest Single View XRAY; Complete Time: 12:09 12/07 11:16 Order name: Accucheck; Complete Time: 11:31 ss 12/07 11:16 Order name: Cardiac monitoring; Complete Time: 11:21 12/07 12:09 Order name: Ova And Parasites [facility] 12/07 12:09 Order name: Occult Blood; Complete Time: 17:16 kdr 12/07 12:09 Order name: Fecal Leukocyte Stain [facility] 12/07 12:09 Order name: CDIFF kdr 12/07 12:41 Order name: Urine Dipstick--Ancillary (enter results); Complete Time: 14:21 eb 12/07 13:20 Order name: Glucose, Ancillary Testing; Complete Time: 14:21 EDMS 12/07 15:50 Order name: CT Abd/Pelvis - IV Contrast Only; Complete Time: 17:17 kdr 12/07 16:46 Order name: EKG Electrocardiogram; Complete Time: 16:47 EDMS 12/07 11:16 Order name: EKG - Nurse/Tech; Complete Time: 11:46 ss 12/07 11:16 Order name: IV Saline Lock - Large Bore; Complete Time: 11:22 ss 12/07 11:16 Order name: Labs collected and sent; Complete Time: 11:22 ss 12/07 11:16 Order name: O2 Per Protocol; Complete Time: 11: ss 12/07 11:16 Order name: O2 Sat Monitoring; Complete Time: 11: ss 12/07 11:16 Order name: Urine Dipstick-Ancillary (obtain specimen); Complete Time: 13:18 ss Administered Medications: 11:31 Drug: NS 0.9% (30 ml/kg) 30 ml/kg Route: IV; Rate: bolus; Site: right hand; aj1 18:59 Follow up: IV Status: Completed infusion; IV Intake: 1000ml ; Order recieved from Dr. urmila Otoole to dc infusion after 1 L as sepsis had been ruled out 16:06 Drug: Tylenol 1000 mg Route: PO; aj1 17:40 Follow up: Response: No adverse reaction aj1 17:46 Drug: Ciprofloxacin 400 mg Volume: 200 ml; Route: IVPB; Infused Over: 60 mins; Site: aj right hand; 17:46 Drug: Flagyl 500 mg Volume: 100 ml; Route: IVPB; Rate: 200 ml/hr; Infused Over: 30 aj1 mins; Site: right hand; 17:46 Drug: Pepcid 20 mg Route: IVP; Site: right hand; aj1 19:00 Follow up: Response: No adverse reaction aj1 Point of Care Testing: Blood Glucose: 11:26 Blood Glucose: 113 mg/dL; aj1 Ranges: Critical Glucose Levels:Adult <50 mg/dl or >400 mg/dl <40 mg/dl or >180 mg/dl Disposition: 12/07/18 17:28 Transfer ordered to [facility]. Diagnosis are Diarrhea, unspecified, Partial SBO, Enteritis. - Reason for transfer: Higher level of care. - Accepting physician is Accepting MD. - Condition is Stable. - Problem is new. - Symptoms have improved. Signatures: Dispatcher [employer] [facility] Lauren Marroquin RN RN aj1 Yasmany Otoole MD MD kdr Lorna Rob, RN RN aa5 Rosy George, CHERYL RN ss Saulo Luciano RN RN tr5 Corrections: (The following items were deleted from the chart) 19:27 17:28 12/07/2018 17:28 Transfer ordered to [place] [address] Diagnosis is Diarrhea, unspecified; Partial SBO, Enteritis. Reason for transfer: Higher level of care. Accepting physician is Accepting MD. Condition is Stable. Problem is new. Symptoms have improved. kdr
--- NOTE | 2018-12-07 17:28 | ER ---
Nurse's Notes [facility] Name: Stefano Celeste Age: 78 yrs Sex: Male : 1940 Arrival Date: 12/07/2018 Time: 10:49 Bed 20 Private MD: Diagnosis: Diarrhea, unspecified;Partial SBO, Enteritis Presentation: 12/07 11:01 Presenting complaint: Patient states: "I was admitted here and I had diarrhea but aa5 nobody treated it but I was taking pain medicine and it got rid of the diarrhea and today the diarrhea came back and I have a fever". Pt also c/o abd pain. Pt states "I threw up once when I was taking my hydrocortisone this morning". Transition of care: patient was not received from another setting of care. Onset of symptoms was December 07, 2018. Risk Assessment: Do you want to hurt yourself or someone else? Patient reports no desire to harm self or others. Initial Sepsis Screen: Does the patient meet any 2 criteria? RR > 20 per min. Temp <36.0*C (96.8*F)) or > 38.3*C (100.9*F). Yes Does the patient have a suspected source of infection? Yes: Other: Diarrhea. Care prior to arrival: None. 11:01 Method Of Arrival: Ambulatory aa5 11:01 Acuity: IZABEL 2 aa5 Historical: - Allergies: 11:04 VENLAFAXINE; aa5 - PMHx: 11:04 Atrial Fib; cardiac stents; COPD; Diabetes - NIDDM; Hypertension; Myocardial aa5 infarction; pituitary tumor (removed); Prostate Cancer; - Immunization history:: Pneumococcal vaccine is up to date, Flu vaccine is not up to date. - Social history:: Smoking status: Patient/guardian denies using tobacco. - Ebola Screening: : No symptoms or risks identified at this time. Screenin:07 Abuse screen: Denies threats or abuse. Denies injuries from another. Nutritional aj1 screening: No deficits noted. Tuberculosis screening: No symptoms or risk factors identified. 19:26 Fall Risk None identified. Total Maddox Fall Scale indicates No Risk (0-24 pts). tr5 Assessment: 11:07 General: Appears in no apparent distress. comfortable, Behavior is calm, cooperative, aj1 appropriate for age. Pain: Complains of pain in abdomen diffusely Pain does not radiate. Pain currently is 3 out of 10 on a pain scale. Quality of pain is described as aching, crampy. Neuro: Level of Consciousness is awake, alert, obeys commands, Oriented to person, place, time, situation. Cardiovascular: Patient's skin is warm and dry. Respiratory: Airway is patent Respiratory effort is even, unlabored, Respiratory pattern is regular, symmetrical. GI: Abdomen is round distended, Bowel sounds present X 4 quads. Abd is soft X 4 quads Abdomen is tender to palpation X 4 quads. Reports diarrhea, Patient currently denies nausea, vomiting. : No signs and/or symptoms were reported regarding the genitourinary system. EENT: No signs and/or symptoms were reported regarding the EENT system. Derm: No signs and/or symptoms reported regarding the dermatologic system. Skin is pink, warm \\T\\ dry. normal. Musculoskeletal: No signs and/or symptoms reported regarding the musculoskeletal system. Circulation, motion, and sensation intact. 12:03 Reassessment: Patient appears in no apparent distress at this time. No changes from aj1 previously documented assessment. Patient and/or family updated on plan of care and expected duration. Pain level reassessed. Patient is alert, oriented x 3, equal unlabored respirations, skin warm/dry/pink. 12:46 Reassessment: Patient appears in no apparent distress at this time. No changes from aj1 previously documented assessment. Patient and/or family updated on plan of care and expected duration. Pain level reassessed. Patient is alert, oriented x 3, equal unlabored respirations, skin warm/dry/pink. 13:40 Reassessment: Patient appears in no apparent distress at this time. No changes from aj1 previously documented assessment. Patient and/or family updated on plan of care and expected duration. Pain level reassessed. Patient is alert, oriented x 3, equal unlabored respirations, skin warm/dry/pink. 14:11 Reassessment: Patient appears in no apparent distress at this time. No changes from aj1 previously documented assessment. Patient and/or family updated on plan of care and expected duration. Pain level reassessed. Patient is alert, oriented x 3, equal unlabored respirations, skin warm/dry/pink. 15:15 Reassessment: Patient and/or family updated on plan of care and expected duration. Pain aj1 level reassessed. General: Appears in no apparent distress. comfortable, Behavior is calm, cooperative, appropriate for age. Neuro: Level of Consciousness is awake, alert, obeys commands, Oriented to person, place, time, situation. Cardiovascular: Patient's skin is warm and dry. Respiratory: Airway is patent Respiratory effort is even, unlabored, Respiratory pattern is regular, symmetrical. GI: Abdomen is round distended. Derm: No signs and/or symptoms reported regarding the dermatologic system. Skin is pink, warm \\T\\ dry. normal. Musculoskeletal: Circulation, motion, and sensation intact. 16:07 Reassessment: Patient appears in no apparent distress at this time. No changes from aj1 previously documented assessment. Patient and/or family updated on plan of care and expected duration. Pain level reassessed. Patient is alert, oriented x 3, equal unlabored respirations, skin warm/dry/pink. 17:07 Reassessment: Patient appears in no apparent distress at this time. No changes from aj1 previously documented assessment. Patient and/or family updated on plan of care and expected duration. Pain level reassessed. Patient is alert, oriented x 3, equal unlabored respirations, skin warm/dry/pink. 18:10 Reassessment: Patient and/or family updated on plan of care and expected duration. Pain aj1 level reassessed. General: Appears in no apparent distress. comfortable, Behavior is calm, cooperative, appropriate for age. Pain: Complains of pain in abdomen diffusely. Neuro: Level of Consciousness is awake, alert, obeys commands, Oriented to person, place, time, situation. Cardiovascular: Patient's skin is warm and dry. Respiratory: Airway is patent Respiratory effort is even, unlabored, Respiratory pattern is regular, symmetrical. GI: Abdomen is round distended, Bowel sounds present X 4 quads. Abd is soft X 4 quads. Derm: Skin is pink, warm \\T\\ dry. normal. Musculoskeletal: Circulation, motion, and sensation intact. 19:18 Reassessment: Patient appears in no apparent distress at this time. Patient and/or tr5 family updated on plan of care and expected duration. Pain level reassessed. Patient is alert, oriented x 3, equal unlabored respirations, skin warm/dry/pink. Vital Signs: 11:02 BP 137 / 59; Pulse 88; Resp 22 S; Temp 101.0(O); Pulse Ox 94% on R/A; Weight 120.2 kg aa5 (R); Height 6 ft. 0 in. (182.88 cm) (R); Pain 2/10; 12:03 BP 123 / 55; Pulse 78; Resp 21; Pulse Ox 98% on R/A; aj1 12:46 BP 127 / 59; Pulse 72; Resp 18; Pulse Ox 99% on R/A; aj1 13:40 BP 120 / 64; Pulse 77; Resp 21; Pulse Ox 95% on R/A; aj1 14:11 BP 136 / 53; Pulse 98; Resp 20; Pulse Ox 97% on R/A; aj1 15:16 BP 127 / 54; Pulse 72; Resp 18; Pulse Ox 96% on R/A; aj1 15:54 Temp 99.7(O); aj1 16:07 BP 127 / 67; Pulse 68; Resp 18; Pulse Ox 99% on R/A; aj1 17:08 BP 128 / 65; Pulse 72; Resp 18; Pulse Ox 95% on R/A; aj1 18:10 BP 126 / 55; Pulse 66; Resp 18; Temp 99.1(O); Pulse Ox 98% on R/A; aj1 19:18 BP 103 / 50; Pulse 63; Resp 17; Pulse Ox 99% on R/A; tr5 11:02 Body Mass Index 35.94 (120.20 kg, 182.88 cm) aa5 ED Course: 10:49 Patient arrived in ED. as 11:00 Arm band placed on. aa5 11:03 Triage completed. aa5 11:07 Patient has correct armband on for positive identification. Placed in gown. Bed in low aj1 position. Call light in reach. Side rails up X 1. shot fireman on. Pulse ox on. NIBP on. 11:07 No provider procedures requiring assistance completed. aj1 11:10 Inserted saline lock: 20 gauge in right antecubital area, using aseptic technique. aj1 Blood collected. 11:10 Initial lab(s) drawn, by nm, sent to lab. First set of blood cultures drawn by nm. aj1 11:21 Lauren Marroquin RN is Primary Nurse. aj1 11:26 Yasmany Otoole MD is Attending Physician. kdr 11:27 Inserted saline lock: 20 gauge in right hand, using aseptic technique. Blood collected. aj1 11:27 Second set of blood cultures drawn. aj1 11:56 EKG done, by lubrication technician. reviewed by Yasmany Otoole MD. sm3 11:57 Chest Single View XRAY In Process Unspecified. EDMS 16:[address] via stretcher. nj 16:37 CT Abd/Pelvis - IV Contrast Only In Process Unspecified. EDMS 17:32 initiated a transfer with Laya from the [facility] transfer center. eb 17:44 faxed patient records to the [facility] as requested by Laya to [phone]. eb 18:[address] Osuna from the [facility] with Dr. Otoole for patient transfer consultation. eb 18:08 administrative approval was given by Stephany Asif from the [facility]/ patient have been eb accepted to the [facility] ER / report to be called to [phone]/ Dr. Osuna has accepted the patient in transfer. 18:30 Report given to CHERYL Hall at the [facility]. aj1 19:03 Report given to Robyn RN and CHERYL Vernon. aj1 19:26 Patient transferred, IV remains in place. tr5 Administered Medications: 11:31 Drug: NS 0.9% (30 ml/kg) 30 ml/kg Route: IV; Rate: bolus; Site: right hand; aj1 18:59 Follow up: IV Status: Completed infusion; IV Intake: 1000ml ; Order recieved from Dr. urmila Otoole to dc infusion after 1 L as sepsis had been ruled out 16:06 Drug: Tylenol 1000 mg Route: PO; aj1 17:40 Follow up: Response: No adverse reaction aj1 17:46 Drug: Ciprofloxacin 400 mg Volume: 200 ml; Route: IVPB; Infused Over: 60 mins; Site: aj1 right hand; 17:46 Drug: Flagyl 500 mg Volume: 100 ml; Route: IVPB; Rate: 200 ml/hr; Infused Over: 30 aj1 mins; Site: right hand; 17:46 Drug: Pepcid 20 mg Route: IVP; Site: right hand; aj1 19:00 Follow up: Response: No adverse reaction aj1 Point of Care Testing: Blood Glucose: 11:26 Blood Glucose: 113 mg/dL; aj1 Ranges: Intake: 18:59 IV: 1000ml; Total: 1000ml. aj1 Outcome: 17:28 ER care complete, transfer ordered by . kdr 19:26 Transferred by ground EMS to [facility] Transfer form completed. tr5 19:26 Condition: stable 19:26 Instructed on the need for transfer. 19:27 Patient left the ED. tr5 Signatures: Dispatcher [employer] Lauren Mueller, CHERYL RN aj1 Yasmany Otoole MD MD kdr Sherie Moss Audri RN RN aa5 Carlos Servin Elizabeth eb Montes, Shakira 3 Saulo Luciano RN RN tr5
[2018-12-07] MEDS ORDERED: METRONIDAZOLE 500mg IVPB 500 MG/100 ML BAG IV ONE (17:30)
[2018-12-07] MEDS ORDERED: CIPROFLOXACIN 400mg IV 400 MG/200 ML BAG IV ONE (17:30)
[2018-12-07] MEDS ORDERED: FAMOTIDINE 20 MG/2 ML VIAL IV ONE (17:30)
--- NOTE | 2018-12-08 12:37 | EKG ---
Test Date: 2018-12-07 Test Time: 11:50:43 Cemetery Manager: LOLA MEASUREMENT RESULTS: Intervals: Rate: 77 DC: 170 QRSD: 82 QT: 368 QTc: 416 [place]: P: 27 DC: 170 QRS: 59 T: 58 INTERPRETIVE STATEMENTS: Sinus rhythm with marked sinus arrhythmia Otherwise normal ECG Compared to ECG 11/29/2018 18:41:40 No significant changes Electronically Signed On 12-08-18 12:33:11 CDT by Jos Goel
== END 2018-12-07 19:27 ==
LOC: ER 10:48
DX: K52.9 Noninfective gastroenteritis and colitis, unspecified (principal); K56.600 Partial intestinal obstruction, unspecified as to cause; I48.91 Unspecified atrial fibrillation; J44.9 Chronic obstructive pulmonary disease, unspecified; E11.9 Type 2 diabetes mellitus without complications; I10 Essential (primary) hypertension; C61 Malignant neoplasm of prostate; I25.2 Old myocardial infarction; Z88.8 Allergy status to other drugs, medicaments and biological substances
CPT/HCPCS: 36415; 71045; 74177; 80048; 80076; 81003; 81015; 82274; 82550; 82553; 82962; 83605; 83690; 84145; 84484; 85025; 85610; 85730; 87040; 87045; 87046; 87177; 87209; 87493; 89055; 93005; 96365; 96366; 96375; 99285; J0744; J7030; Q9967

== ENCOUNTER 2019-03-08 21:45 | Emergency (ER) | payer OTHER ==
[2019-03-08] MEDS ORDERED: METOPROLOL TARTRATE 5 MG/5 ML INJ IV ONE (23:33)
[2019-03-08 23:46] LABS: Absolute Lymphocytes (CBC) 3.3 K/uL (0.7-4.9); Basophils % 1.3 % (0-1.3); Hematocrit 40.7 % (39.6-49.0); Lymphocytes % 27.8 % (15.3-44.8); MPV 8.5 fL (7.6-11.3)
[2019-03-09 00:03] LABS: Protime INR 1.62
[2019-03-09] MEDS ORDERED: HYDROCORTISONE SUC 100 MG INJ ONE (00:39)
[2019-03-09] MEDS ORDERED: METOPROLOL TARTRATE 5 MG/5 ML INJ IV ONE (00:39)
[2019-03-09] MEDS ORDERED: DIGOXIN 0.25 MG/ML AMP ONE (00:39)
[2019-03-09] MEDS ORDERED: METOPROLOL TAR 25 MG TAB ONE (00:39)
[2019-03-09 00:57] LABS: Urine Blood TRACE (NEG); Urine Glucose NEGATIVE (NEG); Urine Protein NEGATIVE (NEG)
[2019-03-09 00:58] LABS: ALT/SGPT 35 U/L (12-78); AST/SGOT 32 U/L (15-37); Alkaline Phosphatase 62 U/L (45-117); BUN Blood Urea Nitrogen 13 mg/dL (7-18); Bicarbonate 29 mmol/L (21-32); Bilirubin Direct < 0.1 mg/dL (0-0.2); Bilirubin Total 0.3 mg/dL (0.2-1.0); Glucose Level 123 mg/dL (74-106); Magnesium 2.5 mg/dL (1.8-2.4); NT PRO-BNP 197 pg/mL (<450); Potassium 4.3 mmol/L (3.5-5.1); Protein, Total 7.9 g/dL (6.4-8.2); Sodium Level 141 mmol/L (136-145); Thyroid Stimulating Hormone 0.732 uIU/mL (0.360-3.740); Troponin (Emerg Dept Use Only) < 0.02 ng/mL (0.0-0.045)
--- NOTE | 2019-03-09 01:36 | EDPHYS ---
Physician Documentation [facility] Name: Stefano Celeste Age: 78 yrs Sex: Male : 1940 Arrival Date: 03/08/2019 Time: 21:48 Bed 27 Private MD: ED Physician Rambo Mcguire HPI: 03/08 23:18 This 78 yrs old Male presents to ER via Ambulatory with complaints of A FIB. zulema 23:18 The patient presents with a history of irregular heart beat, heart racing, heart zulema skipping beats. Context: The symptoms occur at rest, with light activity. Onset: The symptoms/episode began/occurred 2 day(s) ago. Duration: The patient or guardian reports multiple episodes, that wax and wane, with no pattern. Modifying factors: The symptoms are aggravated by nothing. The symptoms are alleviated by nothing. Associated signs and symptoms: The patient has no apparent associated signs or symptoms. Severity of symptoms: At their worst the symptoms were. The patient has experienced similar episodes in the past, a few times. Historical: - Allergies: 21:55 No Known Allergies; jd3 - Home Meds: 21:55 atorvastatin 80 mg Oral tab 1 tab once daily [Active]; levothyroxine 125 mcg tab 1 tab jd3 once daily [Active]; hydrocortisone 10 mg Oral tab 1 tab 2 times per day [Active]; Melatonin Oral [Active]; lisinopril 2.5 mg Oral tab 1 tab once daily [Active]; rivaroxaban 20 mg Oral 1 tab once daily [Active]; metoprolol tartrate 25 mg Oral tab 1 tab 2 times per day [Active]; Tylenol PM Extra Strength Oral [Active]; Vitamin D Oral [Active]; vitamin E 400 unit Oral cap [Active]; - PMHx: 21:55 Atrial Fib; Hypertension; Myocardial infarction; Diabetes - NIDDM; pituitary tumor jd3 (removed); cardiac stents; Prostate Cancer; COPD; - PSHx: 21:55 Heart stents; jd3 - Immunization history:: Adult Immunizations up to date. - Social history:: Smoking status: Patient/guardian denies using tobacco. - Ebola Screening: : Patient negative for fever greater than or equal to 101.5 degrees Fahrenheit, and additional compatible Ebola Virus Disease symptoms. - Family history:: not pertinent. ROS: 23:18 Constitutional: Negative for fever, chills, and weight loss, Eyes: Negative for injury, zulema pain, redness, and discharge, ENT: Negative for injury, pain, and discharge, Neck: Negative for injury, pain, and swelling, Respiratory: Negative for shortness of breath, cough, wheezing, and pleuritic chest pain, Abdomen/GI: Negative for abdominal pain, nausea, vomiting, diarrhea, and constipation, Back: Negative for injury and pain, : Negative for injury, bleeding, discharge, and swelling, MS/Extremity: Negative for injury and deformity, Skin: Negative for injury, rash, and discoloration, Neuro: Negative for headache, weakness, numbness, tingling, and seizure, Psych: Negative for depression, anxiety, suicide ideation, homicidal ideation, and hallucinations, Allergy/Immunology: Negative for hives, rash, and allergies, Endocrine: Negative for neck swelling, polydipsia, polyuria, polyphagia, and marked weight changes, Hematologic/Lymphatic: Negative for swollen nodes, abnormal bleeding, and unusual bruising. 23:18 Cardiovascular: Positive for palpitations. Exam: 23:21 Constitutional: This is a well developed, well nourished patient who is awake, alert, zulema and in no acute distress. Head/Face: Normocephalic, atraumatic. Eyes: Pupils equal round and reactive to light, extra-ocular motions intact. Lids and lashes normal. Conjunctiva and sclera are non-icteric and not injected. Cornea within normal limits. Periorbital areas with no swelling, redness, or edema. ENT: Nares patent. No nasal discharge, no septal abnormalities noted. Tympanic membranes are normal and external auditory canals are clear. Oropharynx with no redness, swelling, or masses, exudates, or evidence of obstruction, uvula midline. Mucous membranes moist. Neck: Trachea midline, no thyromegaly or masses palpated, and no cervical lymphadenopathy. Supple, full range of motion without nuchal rigidity, or vertebral point tenderness. No Meningismus. Chest/axilla: Normal chest wall appearance and motion. Nontender with no deformity. No lesions are appreciated. Respiratory: Lungs have equal breath sounds bilaterally, clear to auscultation and percussion. No rales, rhonchi or wheezes noted. No increased work of breathing, no retractions or nasal flaring. Abdomen/GI: Soft, non-tender, with normal bowel sounds. No distension or tympany. No guarding or rebound. No evidence of tenderness throughout. Back: No spinal tenderness. No costovertebral tenderness. Full range of motion. Male : Normal genitalia with no discharge or lesions. Skin: Warm, dry with normal turgor. Normal color with no rashes, no lesions, and no evidence of cellulitis. MS/ Extremity: Pulses equal, no cyanosis. Neurovascular intact. Full, normal range of motion. Neuro: Awake and alert, GCS 15, oriented to person, place, time, and situation. Cranial nerves II-XII grossly intact. Motor strength 5/5 in all extremities. Sensory grossly intact. Cerebellar exam normal. Normal gait. Psych: Awake, alert, with orientation to person, place and time. Behavior, mood, and affect are within normal limits. 23:21 Cardiovascular: Rate: tachycardic, Rhythm: irregularly irregular, Pulses: Pulses are 4+ in bilateral radial, brachial, femoral, popliteal, posterior tibial and and dorsalis pedis arteries.. Heart sounds: normal, Edema: is not appreciated, JVD: is not appreciated. Vital Signs: 21:55 BP 151 / 96; Pulse 79; Resp 18 S; Temp 97.3(TE); Pulse Ox 97% on R/A; Weight 117.03 kg jd3 (R); Height 6 ft. 0 in. (182.88 cm) (R); Pain 0/10; 22:33 BP 155 / 74; Pulse 113; Resp 18; Pulse Ox 96% on R/A; wh 23:30 BP 143 / 96; Pulse 78; Resp 18; Pulse Ox 97% on R/A; wh 03/09 00:34 BP 147 / 97; Pulse 95; Resp 20; Pulse Ox 97% on R/A; wh 00:52 BP 145 / 88; Pulse 67; Resp 21; Pulse Ox 96% on R/A; Pain 0/10; fu 01:15 BP 128 / 76; Pulse 89; Resp 20; Pulse Ox 95% on R/A; Pain 0/10; fu 01:45 BP 121 / 71; Pulse 89; Resp 20; Pulse Ox 98% ; Pain 0/10; fu 03/08 21:55 Body Mass Index 34.99 (117.03 kg, 182.88 cm) jd3 MDM: 10/31 22:34 Patient medically screened. [facility] 23:21 Data reviewed: vital signs, nurses notes, lab test result(s), EKG, radiologic studies, zulema plain films. 03/08 23:17 Order name: Basic Metabolic Panel; Complete Time: 01:01 [facility] 03/08 23:17 Order name: CBC with Diff; Complete Time: 00:09 [facility] 03/08 23:17 Order name: LFT's; Complete Time: 01:01 [facility] 03/08 23:17 Order name: Magnesium; Complete Time: 01:01 [facility] 03/08 23:17 Order name: NT PRO-BNP; Complete Time: 01: [facility] 03/08 23:17 Order name: PT-INR; Complete Time: 00:09 [facility] 03/08 23:17 Order name: Troponin (emerg Dept Use Only); Complete Time: 01:01 [facility] 03/08 23:17 Order name: XRAY Chest (1 view) [facility] 03/08 23:17 Order name: TSH; Complete Time: 01:01 [facility] 03/08 23:49 Order name: Urine Dipstick--Ancillary (enter results); Complete Time: 01:01 [facility] 03/08 23:17 Order name: EKG; Complete Time: 23:18 [facility] 03/08 23:17 Order name: Cardiac monitoring; Complete Time: 23:38 [facility] 03/08 23:17 Order name: EKG - Nurse/Tech; Complete Time: 23:38 [facility] 03/08 23:17 Order name: IV Saline Lock; Complete Time: 23:38 [facility] 03/08 23:17 Order name: Labs collected and sent; Complete Time: 23:38 [facility] 03/08 23:17 Order name: O2 Per Protocol; Complete Time: 23:38 [facility] 03/08 23:17 Order name: O2 Sat Monitoring; Complete Time: 23:38 [facility] 03/08 23:17 Order name: Urine Dipstick-Ancillary (obtain specimen); Complete Time: 23:38 [facility] 03/09 01:02 Order name: EKG; Complete Time: 01:02 [facility] 03/09 01:02 Order name: EKG - Nurse/Tech; Complete Time: 01:56 [facility] Administered Medications: 23:38 Drug: Lopressor 5 mg Route: IVP; Site: left antecubital; 03/09 00:50 Drug: Lopressor 25 mg Route: PO; 00:50 Drug: Digoxin 0.5 mg Route: IVP; Site: left antecubital; 00:55 Drug: Solu-CORTEF 100 mg Route: IVP; Site: left antecubital; 01:00 Drug: Lopressor 2.5 mg Route: IVP; Site: left antecubital; 01:16 Drug: Lopressor 2.5 mg Route: IVP; Site: left antecubital; fu Disposition: 03/09/19 01:35 Discharged to Home. Impression: Atrial fibrillation and flutter, Palpitations, Type 2 diabetes mellitus. - Condition is Stable. - Discharge Instructions: Atrial Fibrillation, Type 2 Diabetes Mellitus, Diagnosis, Adult, Palpitations, Palpitations, Uoeg-nl-Vfyc, Type 2 Diabetes Mellitus, Diagnosis, Adult, Afon-px-Waig, Atrial Fibrillation, Obza-ey-Cpnc. - Prescriptions for Lopressor 50 mg Oral Tablet - take 1 tablet by ORAL route every 12 hours; 30 tablet. Digitek 250 mcg Oral Tablet - take 1 tablet by ORAL route once daily; 14 tablet. - Medication Reconciliation Form, Thank You Letter, Antibiotic Education, Prescription Opioid Use form. - Follow up: Private Physician; When: 2 - 3 days; Reason: Recheck today's complaints, Continuance of care, Re-evaluation by your physician. Follow up: Miky Quinones; When: 2 - 3 days; Reason: Recheck today's complaints, Re-evaluation by your physician. - Problem is new. - Symptoms have improved. Signatures: Dispatcher [employer] EDME Rambo Mcguire MD MD cha Habalo, Winsy Laureano Woodall RN RN jd3 Umadhay, Felix, RN RN fu Corrections: (The following items were deleted from the chart) 01:58 01:35 03/09/2019 01:35 Discharged to Home. Impression: Atrial fibrillation and flutter; fu Palpitations; Type 2 diabetes mellitus. Condition is Stable. Discharge Instructions: Atrial Fibrillation, Type 2 Diabetes Mellitus, Diagnosis, Adult, Palpitations, Palpitations, Kdvo-vo-Lctb, Type 2 Diabetes Mellitus, Diagnosis, Adult, Fzus-ad-Teaj, Atrial Fibrillation, Kdjs-is-Uymb. Prescriptions for Lopressor 50 mg Oral Tablet - take 1 tablet by ORAL route every 12 hours; 30 tablet, Digitek 250 mcg Oral Tablet - take 1 tablet by ORAL route once daily; 14 tablet. and Forms are Medication Reconciliation Form, Thank You Letter, Antibiotic Education, Prescription Opioid Use. Follow up: Private Physician; When: 2 - 3 days; Reason: Recheck today's complaints, Continuance of care, Re-evaluation by your physician. Follow up: Miky Quinones; When: 2 - 3 days; Reason: Recheck today's complaints, Re-evaluation by your physician. Problem is new. Symptoms have improved. zulema
--- NOTE | 2019-03-09 01:36 | ER ---
Nurse's Notes [facility] Name: Stefano Celeste Age: 78 yrs Sex: Male : 1940 Arrival Date: 03/08/2019 Time: 21:48 Bed 27 Private MD: Diagnosis: Atrial fibrillation and flutter;Palpitations;Type 2 diabetes mellitus Presentation: 03/08 21:51 Presenting complaint: Patient states: "My a-fib has been jumping all over the place her jd3 within the last couple of days after I messed up taking one of my sleep medications. It has been jumping from 70's to 150's.". Transition of care: patient was not received from another setting of care. Onset of symptoms was March 08, 2019. Risk Assessment: Do you want to hurt yourself or someone else? Patient reports no desire to harm self or others. Initial Sepsis Screen: Does the patient meet any 2 criteria? No. Patient's initial sepsis screen is negative. Does the patient have a suspected source of infection? No. Patient's initial sepsis screen is negative. Care prior to arrival: None. 21:51 Method Of Arrival: Ambulatory jd3 21:51 Acuity: IZABEL 3 jd3 Historical: - Allergies: 21:55 No Known Allergies; jd3 - Home Meds: 21:55 atorvastatin 80 mg Oral tab 1 tab once daily [Active]; levothyroxine 125 mcg tab 1 tab jd3 once daily [Active]; hydrocortisone 10 mg Oral tab 1 tab 2 times per day [Active]; Melatonin Oral [Active]; lisinopril 2.5 mg Oral tab 1 tab once daily [Active]; rivaroxaban 20 mg Oral 1 tab once daily [Active]; metoprolol tartrate 25 mg Oral tab 1 tab 2 times per day [Active]; Tylenol PM Extra Strength Oral [Active]; Vitamin D Oral [Active]; vitamin E 400 unit Oral cap [Active]; - PMHx: 21:55 Atrial Fib; Hypertension; Myocardial infarction; Diabetes - NIDDM; pituitary tumor jd3 (removed); cardiac stents; Prostate Cancer; COPD; - PSHx: 21:55 Heart stents; jd3 - Immunization history:: Adult Immunizations up to date. - Social history:: Smoking status: Patient/guardian denies using tobacco. - Ebola Screening: : Patient negative for fever greater than or equal to 101.5 degrees Fahrenheit, and additional compatible Ebola Virus Disease symptoms. - Family history:: not pertinent. Screenin:32 Abuse screen: Denies threats or abuse. Denies injuries from another. Nutritional wh screening: No deficits noted. Tuberculosis screening: No symptoms or risk factors identified. Fall Risk None identified. Assessment: 22:30 General: Appears in no apparent distress. Behavior is calm, cooperative, appropriate wh for age. Pain: Denies pain. Neuro: Level of Consciousness is awake, alert, obeys commands, Oriented to person, place, time, situation, Appropriate for age. Cardiovascular: Heart tones present Rhythm is atrial fibrillation. Respiratory: Airway is patent Respiratory effort is even, unlabored, Respiratory pattern is regular, symmetrical, Breath sounds are clear bilaterally. GI: Abdomen is flat, non-distended. : No signs and/or symptoms were reported regarding the genitourinary system. EENT: No signs and/or symptoms were reported regarding the EENT system. Derm: Skin is intact, is healthy with good turgor, Skin is pink, warm \\T\\ dry. normal. Musculoskeletal: Circulation, motion, and sensation intact. 23:30 Reassessment: Patient appears in no apparent distress at this time. No changes from previously documented assessment. Patient and/or family updated on plan of care and expected duration. Pain level reassessed. Patient is alert, oriented x 3, equal unlabored respirations, skin warm/dry/pink. Patient denies pain at this time. 03/09 00:32 Reassessment: Patient appears in no apparent distress at this time. No changes from previously documented assessment. Patient and/or family updated on plan of care and expected duration. Pain level reassessed. Patient is alert, oriented x 3, equal unlabored respirations, skin warm/dry/pink. Patient denies pain at this time. 01:10 Reassessment: Patient appears in no apparent distress at this time. Patient and/or fu family updated on plan of care and expected duration. Pain level reassessed. Patient is alert, oriented x 3, equal unlabored respirations, skin warm/dry/pink. Patient denies pain at this time. Vital Signs: 03/08 21:55 BP 151 / 96; Pulse 79; Resp 18 S; Temp 97.3(TE); Pulse Ox 97% on R/A; Weight 117.03 kg jd3 (R); Height 6 ft. 0 in. (182.88 cm) (R); Pain 0/10; 22:33 BP 155 / 74; Pulse 113; Resp 18; Pulse Ox 96% on R/A; wh 23:30 BP 143 / 96; Pulse 78; Resp 18; Pulse Ox 97% on R/A; wh 03/09 00:34 BP 147 / 97; Pulse 95; Resp 20; Pulse Ox 97% on R/A; wh 00:52 BP 145 / 88; Pulse 67; Resp 21; Pulse Ox 96% on R/A; Pain 0/10; fu 01:15 BP 128 / 76; Pulse 89; Resp 20; Pulse Ox 95% on R/A; Pain 0/10; fu 01:45 BP 121 / 71; Pulse 89; Resp 20; Pulse Ox 98% ; Pain 0/10; fu 03/08 21:55 Body Mass Index 34.99 (117.03 kg, 182.88 cm) jd3 ED Course: 03/08 21:48 Patient arrived in ED. es 21:53 Triage completed. jd3 21:56 Arm band placed on. jd3 21:58 Porsche May is Primary Nurse. wh 22:13 EKG done, by ED staff. lt1 22:32 Patient has correct armband on for positive identification. Placed in gown. Bed in low wh position. Call light in reach. Side rails up X 1. panel monitor on. Pulse ox on. NIBP on. 22:34 Rambo Mcguire MD is Attending Physician. zulema 23:20 Inserted saline lock: 22 gauge in left antecubital area, using aseptic technique. Blood wh collected. 23:52 XRAY Chest (1 view) In Process Unspecified. EDMS 03/09 01:35 Miky Quinones MD is Referral Physician. zulema 01:39 EKG done, by ED staff, reviewed by Rambo Mcguire MD. fu 01:54 IV discontinued, bleeding controlled, Pressure dressing applied. fu 01:55 No provider procedures requiring assistance completed. fu Administered Medications: 03/08 23:38 Drug: Lopressor 5 mg Route: IVP; Site: left antecubital; 03/09 00:50 Drug: Lopressor 25 mg Route: PO; wh 00:50 Drug: Digoxin 0.5 mg Route: IVP; Site: left antecubital; 00:55 Drug: Solu-CORTEF 100 mg Route: IVP; Site: left antecubital; 01:00 Drug: Lopressor 2.5 mg Route: IVP; Site: left antecubital; 01:16 Drug: Lopressor 2.5 mg Route: IVP; Site: left antecubital; fu Outcome: 01:35 Discharge ordered by MD. poole 01:54 Discharged to home ambulatory. fu 01:54 Condition: stable 01:54 Discharge instructions given to patient, Instructed on discharge instructions, follow up and referral plans. Demonstrated understanding of instructions, medications, Prescriptions given X 2. 01:58 Patient left the ED. fu Signatures: Dispatcher [employer] EDRambo Church MD MD cha Salyer, Danae May, Porsche Laureano Woodall RN Elias Chong RN RN fu Tran, Cely lt1 Corrections: (The following items were deleted from the chart) 00:33 00:32 Reassessment: Patient appears in no apparent distress at this time. No changes wh from previously documented assessment. Patient and/or family updated on plan of care and expected duration. Pain level reassessed. Patient is alert, oriented x 3, equal unlabored respirations, skin warm/dry/pink.
[2019-03-09 02:13] VITALS: TEMP 97.3
[2019-03-09 02:21] VITALS: BP 121/71; O2SAT 98
--- NOTE | 2019-03-09 07:42 | EKG ---
Test Date: 2019-03-09 Test Time: 01:36:02 Developer Relations Manager: KARLOS MEASUREMENT RESULTS: Intervals: Rate: 86 AR: QRSD: 88 QT: 372 QTc: 445 [place]: P: AR: QRS: 56 T: 79 INTERPRETIVE STATEMENTS: Atrial fibrillation Abnormal ECG Compared to ECG 12/07/2018 11:50:43 Sinus rhythm no longer present Sinus arrhythmia no longer present Electronically Signed On 03-09-19 07:41:21 CDT by Miky Quinones
--- NOTE | 2019-03-09 07:42 | EKG ---
Test Date: 2019-03-08 Test Time: 22:03:45 Family Specialist: JULI MEASUREMENT RESULTS: Intervals: Rate: 98 SD: QRSD: 84 QT: 364 QTc: 464 Early: P: SD: QRS: 51 T: 77 INTERPRETIVE STATEMENTS: Atrial fibrillation Abnormal ECG Compared to ECG 12/07/2018 11:50:43 Sinus rhythm no longer present Sinus arrhythmia no longer present Electronically Signed On 03-09-19 07:41:43 CDT by Miky Quinones
--- NOTE | 2019-03-09 08:04 | RAD REPORT ---
EXAM DESCRIPTION: Stew Single View03/08/2019 11:52 pm CLINICAL HISTORY: Cough COMPARISON: December 2017 FINDINGS: The lungs appear clear of acute infiltrate. The heart is normal size IMPRESSION: No acute abnormalities displayed
== END 2019-03-09 01:58 | disposition home or self-care (01) ==
LOC: ER 21:45
DX: I48.91 Unspecified atrial fibrillation (principal); I48.92 Unspecified atrial flutter; R00.2 Palpitations; E11.9 Type 2 diabetes mellitus without complications; I25.2 Old myocardial infarction; Z95.5 Presence of coronary angioplasty implant and graft; Z85.46 Personal history of malignant neoplasm of prostate; I10 Essential (primary) hypertension
CPT/HCPCS: 93005 ×2; 85025; 80048; 36415; 83735; 85610; 80076; 84443; 81003; 84484; 83880; 71045; 96375; 96374; 99285; J1160; J1720

== ENCOUNTER 2021-05-27 14:53 | Emergency (ER) | payer OTHER ==
--- OUTSIDE RECORDS SUMMARY | 2021-05-27 14:58 | XMS REPORT | Continuity of Care Document ---
:1940 Author Organization [facility] t Address [address] [place] [address] [address]. [address] [place] [address] Care Team Providers Name Role Phone Pcp, Does Not Have A Primary Care Physician Therapy, Covid Infusion Attending Clinician Unavailable Madhuri FORD, H Attending Clinician Problems This patient has no known problems. Allergies, Adverse Reactions, Alerts This patient has no known allergies or adverse reactions. Social History Social Habit Start Date Stop Date Quantity Comments Source Sex Assigned At [birth year] [facility] 00:00:00 00:00:00 Medical Branch Smoking Status Start Date Stop Date Source Unknown if ever smoked [facility] Medications Ordered Filled Start Stop Current Ordering Indication Dosage Frequency Signature Comments Components Source Medication Medication Date Date Medication? Clinician (SIG) Name Name sotrovimab 2021- No [id number] 500mg [facility] (XEVUDY) 05-14 ity of 500 mg in 19:52: 18:22 [place] NaCl 0.9% 00 :00 Medical (NS) 50 mL Branch MINI-BAG sotrovimab 2021- No [id number] 500mg 500 mg, IV [facility] (XEVUDY) 05-14 Infusion, ity o f 500 mg in 19:52: 18:22 ONCE, [place] NaCl 0.9% 00 :00 Administer Medi sarai (NS) 50 mL over 30 Branch MINI-BAG Minutes, On [place] 05/14/21 at 1400, For [address] able 24 hours refrigerat ed or 6 hours at room temperatur e including transporta tion and infusion time.<b r> Immunizations Ordered Filled Immunization Date Status Comments Sourc e Immunization Name Name SARS-COV-2 COVID-19 2020-07-25 Completed Unive rsity of PFIZER VACCINE 00:00:00 [facility] SARS-COV-2 COVID-19 2020-07-04 Completed Unive rsity of PFIZER VACCINE 00:00:00 [facility] Vital Signs Vital Name Observation Time Observation Value Comments Source Heart rate 2021-05-14 18:52:00 55 /min [facility] Body temperature 2021-05-14 18:52:00 36.22 [facility] Respiratory rate 2021-05-14 18:52:00 20 /min [facility] Oxygen saturation in 2021-05-14 18:52:00 98 /min [facility] Arterial blood by [facility] Pulse oximetry Branch Systolic blood 2021-05-14 18:52:00 117 mm[Hg] Univer sity of pressure [facility] Diastolic blood 2021-05-14 18:52:00 63 mm[Hg] Unive rsity of pressure [facility] Body height 2021-05-14 17:35:00 182.9 cm [facility] Body weight 2021-05-14 17:35:00 92.987 kg [facility] BMI 2021-05-14 17:35:00 27.80 kg/m2 [facility] Procedures This patient has no known procedures. Encounters Start End Encounter Admission Attending Care Care Encounter Source Date/Time Date/Time Type Type Clinicians Facility Department ID 2021-05-14 2021-05-14 Nurse Therapy, Pcp Covid Infusion [facility] [id number] [facility] 11:00:00 12:00:00 Visit Tera Dhaliwal PRIMARY [id number] ity of CARE [id number] Caleb PIERCE [id number] Mt dical [facility] Branch Results This patient has no known results.
--- NOTE | 2021-05-27 16:12 | ER ---
Nurse's Notes [facility] Name: Stefano Celeste Age: 81 yrs Sex: Male : 1940 Arrival Date: 05/27/2021 Time: 14:56 Bed Waiting Private MD: Diagnosis: ED Course: 05/27 14:56 Patient arrived in ED. ds1 Administered Medications: No medications were administered Outcome: 16:11 Patient left the ED. [email or web address] Signatures: Noa Mejia Jonathon, RN RN jd3
== END 2021-05-27 16:11 | disposition left against medical advice (07) ==
LOC: ER 14:53
DX: Z02.9 Encounter for administrative examinations, unspecified (principal)

== ENCOUNTER 2022-05-13 17:33 | Emergency (ER) | payer OTHER ==
--- NOTE | 2022-05-13 19:41 | RAD REPORT ---
EXAM DESCRIPTION: RAD - Knee Left 3 View - 05/13/2022 7:08 pm CLINICAL HISTORY: PAIN COMPARISON: No comparisons FINDINGS: Mild tricompartmental osteoarthritis is present. Small joint effusion is noted. No fractur e evident.
--- NOTE | 2022-05-13 20:18 | ER ---
Nurse's Notes [facility] Name: Stefano Celeste Age: 82 yrs Sex: Male : 1940 Arrival Date: 05/13/2022 Time: 17:43 Bed 11 Private MD: Diagnosis: Acute left knee pain;Fall from standing Presentation: 05/13 17:45 Chief complaint: Patient states: he felt like his left knee "gave out" on him and he ap3 fell and hit his left elbow. patient denies hitting his head or LOC. patient is complaining of left knee and left hip pain at this time. Coronavirus screen: At this time, the client does not indicate any symptoms associated with coronavirus-19. Ebola Screen: No symptoms or risks identified at this time. Initial Sepsis Screen: Does the patient meet any 2 criteria? No. Patient's initial sepsis screen is negative. Does the patient have a suspected source of infection? No. Patient's initial sepsis screen is negative. Risk Assessment: Do you want to hurt yourself or someone else? Patient reports no desire to harm self or others. Onset of symptoms was May 13, 2022 at 17:15. 17:45 Method Of Arrival: EMS: [facility] ap3 17:45 Acuity: IZABEL 4 ap3 Triage Assessment: 17:48 General: Appears comfortable, Behavior is calm, cooperative. Pain: Complains of pain in ap3 left knee and left hip Pain began suddenly, after fall. Neuro: Level of Consciousness is awake, alert, obeys commands, Oriented to person, place, time, situation, Speech is normal. Cardiovascular: Patient's skin is warm and dry. Respiratory: Airway is patent Respiratory effort is even, unlabored, Respiratory pattern is regular, symmetrical. Historical: - Allergies: 17:47 No Known Allergies; ap3 - Home Meds: 17:47 Xarelto oral [Active]; ap3 - PMHx: 17:47 Atrial Fib; cardiac stents; COPD; Diabetes - NIDDM; Hypertension; Myocardial ap3 infarction; pituitary tumor (removed); Prostate Cancer; - Immunization history:: Client reports receiving the 2nd dose of the Covid vaccine. - Social history:: Smoking status: Patient reports use of chewing tobacco. Screenin:49 [facility] ED Fall Risk Assessment (Adult) History of falling in the last 3 months, ap3 including since admission Yes- fall prone (multiple falls) (3 pts). Abuse screen: Denies threats or abuse. Nutritional screening: No deficits noted. Tuberculosis screening: No symptoms or risk factors identified. Assessment: 20:31 Reassessment: Patient is alert, oriented x 3, equal unlabored respirations, skin bb warm/dry/pink. pt seen by this RN at discharge pt verbalized understanding of and agrees to plan of care discharge instructions given pt assisted to exit via wheelchair accompanied by family. Vital Signs: 17:45 BP 106 / 62; Pulse 89; Resp 17; Temp 98.7(TE); Pulse Ox 96% ; Weight 109.32 kg; Height ap3 6 ft. (182.88 cm); 20:32 BP 144 / 74; Pulse 78; Resp 16 S; Temp 98.3(O); Pulse Ox 98% on R/A; bb 17:45 Body Mass Index 32.69 (109.32 kg, 182.88 cm) ap3 ED Course: 17:43 Patient arrived in ED. ap3 17:47 Triage completed. ap3 17:49 Rambo Bonilla PA is PHCP. cp 17:49 Noble Cristobal DO is Attending Physician. cp 17:49 Arm band placed on right wrist. ap3 17:49 Patient has correct armband on for positive identification. Bed in low position. Call ap3 light in reach. Side rails up X2. Pulse ox on. NIBP on. Door closed. Noise minimized. 17:50 ED physician to see patient. ap3 17:50 Terrie Chavez, CHERYL is Primary Nurse. ap3 19:09 Attending Physician role handed off by Noble Cristobal DO sd2 19:09 Clementina Abad MD is Attending Physician. sd2 19:10 Knee Left 3 View XRAY In Process Unspecified. EDMS 20:15 Jorge Luis Ackerman MD is Referral Physician. sd2 20:32 No provider procedures requiring assistance completed. Patient did not have IV access bb during this emergency room visit. Administered Medications: No medications were administered Medication: 20:33 VIS not applicable for this client. bb Outcome: 20:18 Discharge ordered by . sd2 20:32 Discharged to home via wheelchair, with family. bb 20:32 Condition: stable 20:32 Discharge instructions given to patient, Instructed on discharge instructions, follow up and referral plans. Demonstrated understanding of instructions, follow-up care. 20:33 Patient left the ED. bb Signatures: Dispatcher [employer] Kathryn Winters RN RN Rambo Agustin PA PA cp Prokisch, Amanda, RN RN ap3 Noble Cristobal DO DO ms3 Clementina Abad MD MD sd2
--- NOTE | 2022-05-13 20:18 | EDPHYS ---
Physician Documentation [facility] Name: Stefano Celeste Age: 82 yrs Sex: Male : 1940 Arrival Date: 05/13/2022 Time: 17:43 Bed 11 Private MD: ED Physician Clementina Abad HPI: 05/13 18:40 This 82 yrs old Male presents to ER via EMS with complaints of Fall Injury. ms3 18:40 82-year-old male with past medical history of atrial fibrillation, cardiac stents, ms3 COPD, diabetes, hypertension presents via [facility] status post fall. Patient states he worked out with physical therapy today and then began walking the same amount after physical therapy left. Patient then became weak and his asked him to go close the back gait. When walking down 2 steps patient states his left knee gave way causing him to fall. Patient denies loss of consciousness, or striking his head.. Historical: - Allergies: 17:47 No Known Allergies; ap3 - Home Meds: 17:47 Xarelto oral [Active]; ap3 - PMHx: 17:47 Atrial Fib; cardiac stents; COPD; Diabetes - NIDDM; Hypertension; Myocardial ap3 infarction; pituitary tumor (removed); Prostate Cancer; - Immunization history:: Client reports receiving the 2nd dose of the Covid vaccine. - Social history:: Smoking status: Patient reports use of chewing tobacco. ROS: 18:40 Constitutional: Negative for fever, and chills. ms3 18:40 Abdomen/GI: Negative for abdominal pain, nausea, vomiting, diarrhea, and constipation. 18:40 MS/extremity: Positive for left knee. 18:40 Skin: Positive for abrasion(s). 18:40 All other systems are negative. Exam: 18:40 Constitutional: This is a well developed, well nourished patient who is awake, alert, ms3 and in no acute distress. Head/Face: Normocephalic, atraumatic. Neck: Trachea midline, no cervical lymphadenopathy. Supple, full range of motion without nuchal rigidity, or vertebral point tenderness. No Meningismus. Chest/axilla: Normal chest wall appearance and motion. Nontender with no deformity. Cardiovascular: Regular rate and rhythm with a normal S1 and S2. No gallops, murmurs, or rubs. Normal PMI, no JVD. No pulse deficits. Respiratory: Lungs have equal breath sounds bilaterally, clear to auscultation and percussion. No rales, rhonchi or wheezes noted. No increased work of breathing, no retractions or nasal flaring. Abdomen/GI: Soft, non-tender, with normal bowel sounds. No distension or tympany. No guarding or rebound. No evidence of tenderness throughout. 18:40 Musculoskeletal/extremity: Extremities: noted in the left knee: pain, tenderness. 18:40 Skin: abrasions to left elbow. Vital Signs: 17:45 BP 106 / 62; Pulse 89; Resp 17; Temp 98.7(TE); Pulse Ox 96% ; Weight 109.32 kg; Height ap3 6 ft. (182.88 cm); 20:32 BP 144 / 74; Pulse 78; Resp 16 S; Temp 98.3(O); Pulse Ox 98% on R/A; bb 17:45 Body Mass Index 32.69 (109.32 kg, 182.88 cm) ap3 MDM: 17:49 Patient medically screened. cp 18:40 Differential diagnosis: abrasion, fracture, strain. ms3 19:11 ED course: Discussed obtaining CT head and neck with patient. Patient declined CT head ms3 and neck at this time.. 20:14 Data reviewed: radiologic studies. Counseling: I had a detailed discussion with the sd2 patient and/or guardian regarding: the historical points, exam findings, and any diagnostic results supporting the discharge/admit diagnosis, radiology results, the need for outpatient follow up, to return to the emergency department if symptoms worsen or persist or if there are any questions or concerns that arise at home. Medical screen evaluation completed. [facility] emergency medical condition absent. ED course: Imaging reviewed and consistent with tricompartmental osteoarthritis with no acute changes. This has been an ongoing issue with recurrent falls. Advised follow up with Orthopedics and PCP. pt currently already in PT and has a cane, walker and a chair lift. Pt is comfortable with plan and verbalizes understanding of discharge plan and strict return precautions. . 05/13 18:10 Order name: Knee Left 3 View XRAY; Complete Time: 19:47 ms3 Administered Medications: No medications were administered Disposition Summary: 05/13/22 20:18 Discharge Ordered Location: Home sd2 Problem: an ongoing problem sd2 Symptoms: have improved sd2 Condition: Stable sd2 Diagnosis - Acute left knee pain sd2 - Fall from standing sd2 Followup: sd2 - With: Private Physician - When: 2 - 3 days - Reason: Recheck today's complaints, Continuance of care, Re-evaluation by your physician Followup: sd2 - With: Jorge Luis Ackerman MD - When: 2 - 3 days - Reason: Recheck today's complaints, Continuance of care Discharge Instructions: - Discharge Summary Sheet sd2 - Acute Knee Pain, Adult sd2 Forms: - Medication Reconciliation Form sd2 - Thank You Letter sd2 - Antibiotic Education sd2 - Prescription Opioid Use sd2 Signatures: Dispatcher [employer] EDMS Rambo Bonilla PA PA cp Prokisch, Amanda, RN RN ap3 Noble Cristobal DO DO ms3 Clementina Abad MD MD sd2
[2022-05-13 21:01] VITALS: BP 144/74; TEMP 98.3; O2SAT 98
== END 2022-05-13 20:33 | disposition home or self-care (01) ==
LOC: ER 17:33
DX: M25.562 Pain in left knee (principal); W18.30XA Fall on same level, unspecified, initial encounter; I48.91 Unspecified atrial fibrillation; F17.220 Nicotine dependence, chewing tobacco, uncomplicated; Z79.01 Long term (current) use of anticoagulants; Z95.818 Presence of other cardiac implants and grafts
CPT/HCPCS: 99283

== ENCOUNTER 2024-02-17 13:57 | Emergency (ER) | payer OTHER ==
[2024-02-17 14:32] LABS: Absolute Basophils 0.1 K/uL (0-0.5); Absolute Eosinophils 0.3 K/uL (0-0.5); Absolute Lymphocytes (CBC) 3.1 K/uL (0.7-4.9); Absolute Monocytes 0.9 K/uL (0.1-1.3); Basophils % 1.2 % (0-1.3); Eosinophils % 2.6 % (0-4.4); Hematocrit 35.8 % (39.6-49.0); MCH 29.8 pg (27.0-35.0); MCHC 33.4 g/dL (32.0-36.0); MCV 89.2 fL (80-100); MPV 8.8 fL (7.6-11.3); Monocytes % 8.2 % (3.3-12.3); Platelets 219 thou/uL (152-406); RBC Red Blood Cell Count 4.01 M/uL (4.33-5.43); Red Cell Distribution Width 13.5 % (12.1-15.2)
[2024-02-17 14:49] LABS: ALT/SGPT 25 U/L (16-61); AST/SGOT 16 U/L (15-37); Albumin 3.2 g/dL (3.4-5.0); Alkaline Phosphatase 46 U/L (45-117); BUN Blood Urea Nitrogen 18 mg/dL (7-18); Bicarbonate 29 mEq/L (21-32); Bilirubin Direct < 0.2 mg/dL (0-0.2); Bilirubin Indirect, Calculated 0.1 mg/dL (0.2-0.8); Bilirubin Total 0.3 mg/dL (0.2-1.0); Globulin 3.1 g/dL (2.3-3.5); Glomerular Filtration Rate 84 ml/min (=/>90); Glucose Level 131 mg/dL (74-106); NT PRO-BNP 556 pg/mL (<450); Protein, Total 6.3 g/dL (6.4-8.2); Sodium Level 143 mEq/L (136-145); Troponin High Sensitivity 6.2 pg/mL (<58.9)
--- NOTE | 2024-02-17 15:33 | RAD REPORT ---
Procedure: Chest Single View History: Chest pain Comparison: 2019 Findings: The lungs appear clear of acute infiltrate. No significant pleural effusion noted. The heart is normal size. IMPRESSION: No acute abnormality is displayed.
--- NOTE | 2024-02-17 15:46 | ER ---
Nurse's Notes [facility] Name: Stefano Celeste Age: 83 yrs Sex: Male : 1940 Arrival Date: 02/17/2024 Time: 13:57 Bed 18 Private MD: Diagnosis: Chest pain, unspecified Presentation: 02/16 14:04 Chief complaint: EMS states: "[facility] mb9 arrival, pt in Atrial Fibrillation RVR at 150s. Gave 324 mg of Aspirin and a total of 2 nitros. 20 g right FA.". Coronavirus screen: Vaccine status: Patient reports receiving the 2nd dose of the covid vaccine. Ebola Screen: No symptoms or risks identified at this time. Initial Sepsis Screen: Does the patient meet any 2 criteria? No. Patient's initial sepsis screen is negative. Does the patient have a suspected source of infection? No. Patient's initial sepsis screen is negative. Risk Assessment: Do you want to hurt yourself or someone else? Patient reports no desire to harm self or others. Onset of symptoms was February 17, 2024. 14:04 Method Of Arrival: EMS: [facility] mb9 14:04 Acuity: IZABEL 2 mb9 Triage Assessment: 14:07 General: Appears in no apparent distress. Behavior is calm, cooperative. Pain: Denies mb9 pain. EENT: No signs and/or symptoms were reported regarding the EENT system. Neuro: Varma Agitation-Sedation Scale (RASS): 0 - Alert and Calm Level of Consciousness is awake, alert, obeys commands, Oriented to person, place, time, situation, Appropriate for age. Cardiovascular: Heart tones S1 S2 present Patient's skin is warm and dry. Rhythm is atrial fibrillation with rapid ventricular response. Respiratory: Airway is patent Respiratory effort is even, unlabored, Respiratory pattern is regular, symmetrical, Breath sounds are clear bilaterally. GI: Abdomen is round non-distended, Bowel sounds present X 4 quads. Abd is soft and non tender X 4 quads. : No signs and/or symptoms were reported regarding the genitourinary system. Derm: Skin is pink, warm \\T\\ dry. Musculoskeletal: Range of motion: intact in all extremities. Historical: - Allergies: 14:05 No Known Allergies; mb9 - Home Meds: 14:05 Xarelto Oral [Active]; metoprolol tartrate 50 mg oral tablet [Active]; mb9 - PMHx: 14:05 Atrial Fib; cardiac stents; COPD; Diabetes - NIDDM; Hypertension; Myocardial mb9 infarction; pituitary tumor (removed); Prostate Cancer; - PSHx: 14:05 tumor removal (Prostate Cancer); cardiac stents (Prostate Cancer); mb9 - Immunization history:: Adult Immunizations up to date. - Infectious Disease History:: Denies. - Social history:: Smoking status: Patient reports use of chewing tobacco. - Family history:: not pertinent. Screenin:09 [facility] ED Fall Risk Assessment (Adult) History of falling in the last 3 months, mb9 including since admission No falls in past 3 months (0 pts) Confusion or Disorientation No (0 pts) Intoxicated or Sedated No (0 pts) Impaired Gait No (0 pts) Mobility Assist Device Used No (0 pt) Altered Elimination No (0 pt) Score/Fall Risk Level 0 - 2 = Low Risk Oriented to surroundings, Maintained a safe environment, Educated pt \\T\\ family on fall prevention, incl call for assistance when getting out of bed. Abuse screen: Denies threats or abuse. Nutritional screening: No deficits noted. Tuberculosis screening: No symptoms or risk factors identified. Assessment: 14:08 Reassessment: see triage assessment. mb9 15:16 Reassessment: No changes from previously documented assessment. Patient and/or family mb9 updated on plan of care and expected duration. Pain level reassessed. Patient is alert, oriented x 3, equal unlabored respirations, skin warm/dry/pink. 15:51 Reassessment: D/C pending ride home. mb9 Vital Signs: 14:04 BP 116 / 61; Pulse 107; Resp 16; Temp 98; Pulse Ox 97% on R/A; Weight 102.97 kg; Height mb9 6 ft. 0 in. ; Pain 0/10; 14:40 BP 116 / 63; Pulse 86; Resp 16; Pulse Ox 96% on R/A; mb9 15:39 BP 117 / 65; Pulse 54; Resp 16; Pulse Ox 100% on R/A; mb9 14:04 Body Mass Index 30.79 (102.97 kg, 182.88 cm) mb9 14:04 Pain Scale: Adult mb9 ED Course: 14:00 EKG done, by ED staff, reviewed by Andrew Du MD. mb9 14:03 Patient arrived in ED. ap3 14:04 Dianna Nicole, RN is Primary Nurse. mb9 14:04 Arm band placed on. mb9 14:05 Triage completed. mb9 14:08 Andrew Du MD is Attending Physician. rt 14:08 Initial lab(s) drawn, by me, sent to lab. Maintain EMS IV. Dressing intact. Good blood mb9 return noted. Site clean \\T\\ dry. Gauge \\T\\ site: 20g right FA. Flushed with 10 mL NS. 14:09 Placed in gown. Bed in low position. Call light in reach. Side rails up X 1. Provided mb9 Education on: press call light if needing anything. Client placed on continuous cardiac and pulse oximetry monitoring. NIBP monitoring applied. nursery manager on. 15:16 XRAY Chest (1 view) In Process Unspecified. EDMS 15:52 No provider procedures requiring assistance completed. IV discontinued, intact, mb9 bleeding controlled, No redness/swelling at site. Pressure dressing applied. Administered Medications: No medications were administered Medication: 15:52 VIS not applicable for this client. mb9 Outcome: 16:02 AMA AMA form signed mb9 16:02 Condition: stable 16:02 Patient left the ED. mb9 Signatures: Dispatcher [employer] EDTerrie Alexander RN RN ap3 Dianna Nicole, RN RN [email or web address] Andrew Du MD MD rt
--- NOTE | 2024-02-17 15:46 | EDPHYS ---
Physician Documentation [facility] Name: Stefano Celeste Age: 83 yrs Sex: Male : 1940 Arrival Date: 02/17/2024 Time: 13:57 Bed 18 Private MD: ED Physician Andrew Du HPI: 02/16 14:12 This 83 yrs old Male presents to ER via EMS with complaints of chest pain. rt 14:12 Patient presents to the ED with chest pain described as a pressure starting a few hours rt prior to arrival. Patient has known A-fib, went to the [facility] clinic was found to have A-fib with rapid ventricular rate. He took aspirin and nitro prior to arrival with no relief. Tums also provided no relief. States that symptoms have significantly improved, denies any pain currently. Symptoms are moderate severity, no other aggravating or alleviating factors.. Historical: - Allergies: 14:05 No Known Allergies; mb9 - Home Meds: 14:05 Xarelto Oral [Active]; metoprolol tartrate 50 mg oral tablet [Active]; mb9 - PMHx: 14:05 Atrial Fib; cardiac stents; COPD; Diabetes - NIDDM; Hypertension; Myocardial mb9 infarction; pituitary tumor (removed); Prostate Cancer; - PSHx: 14:05 tumor removal (Prostate Cancer); cardiac stents (Prostate Cancer); mb9 - Immunization history:: Adult Immunizations up to date. - Infectious Disease History:: Denies. - Social history:: Smoking status: Patient reports use of chewing tobacco. - Family history:: not pertinent. ROS: 14:12 Constitutional: Negative for fever, chills, and weight loss, Respiratory: Negative for rt shortness of breath, cough, wheezing, and pleuritic chest pain, Abdomen/GI: Negative for abdominal pain, nausea, vomiting, diarrhea, and constipation, MS/Extremity: Negative for injury and deformity, Skin: Negative for injury, rash, and discoloration, Neuro: Negative for headache, weakness, numbness, tingling, and seizure, 14:12 Cardiovascular: Positive for chest pain, Negative for edema, Exam: 14:12 Constitutional: This is a well developed, well nourished patient who is awake, alert, rt and in no acute distress. Head/Face: Normocephalic, atraumatic. Chest/axilla: Normal chest wall appearance and motion. Nontender with no deformity. No lesions are appreciated. Cardiovascular: Regular rate and rhythm with a normal S1 and S2. No gallops, murmurs, or rubs. Normal PMI, no JVD. No pulse deficits. Respiratory: Lungs have equal breath sounds bilaterally, clear to auscultation and percussion. No rales, rhonchi or wheezes noted. No increased work of breathing, no retractions or nasal flaring. Skin: Warm, dry with normal turgor. Normal color with no rashes, no lesions, and no evidence of cellulitis. MS/ Extremity: Pulses equal, no cyanosis. Neurovascular intact. Full, normal range of motion. Neuro: Awake and alert, GCS 15, oriented to person, place, time, and situation. Cranial nerves II-XII grossly intact. Motor strength 5/5 in all extremities. Sensory grossly intact. Cerebellar exam normal. Normal gait. 14:12 ECG was reviewed by the Attending Physician. Vital Signs: 14:04 BP 116 / 61; Pulse 107; Resp 16; Temp 98; Pulse Ox 97% on R/A; Weight 102.97 kg; Height mb9 6 ft. 0 in. ; Pain 0/10; 14:40 BP 116 / 63; Pulse 86; Resp 16; Pulse Ox 96% on R/A; mb9 15:39 BP 117 / 65; Pulse 54; Resp 16; Pulse Ox 100% on R/A; mb9 14:04 Body Mass Index 30.79 (102.97 kg, 182.88 cm) mb9 14:04 Pain Scale: Adult mb9 MDM: 14:08 Patient medically screened. rt 16:59 Differential Diagnosis ACS, chest pain, A-fib with RVR. Data reviewed: vital signs, rt nurses notes, lab test result(s), EKG, radiologic studies. Consideration of Admission/Observation Escalation of care including admission/observation considered. Recommended the patient be admitted to the hospital for further restratification as well as observation of A-fib, [facility] that [facility]. Offered transfer patient to NH, states that he does not wish to go be transferred from here. Patient elects to leave AGAINST MEDICAL ADVICE. Has decision-making capacity to refuse admission, transfer at this time.. Independent interpretation of the following test(s) in the Emergency Department X-Ray: My interpretation is No consolidation seen on interpretation of x-ray images. Test considered but Not performed: CT: Low suspicion for pulmonary embolus, CT angiogram not indicated. Care significantly affected by the following chronic conditions: A-fib, CAD. Counseling: I had a detailed discussion with the patient and/or guardian regarding the historical points, exam findings, and any diagnostic results supporting the discharge/admit diagnosis, lab results, radiology results, the need to transfer to another facility. Refusal of service: The patient/guardian displays adequate decision making capability and despite a detailed discussion of alternatives, benefits, risks, and consequences refuses: Admission to the hospital for further work-up and treatment. 02/16 14:09 Order name: Basic Metabolic Panel; Complete Time: 14:57 rt 02/16 14:09 Order name: CBC with Diff; Complete Time: 14:57 rt 02/16 14:09 Order name: LFT's; Complete Time: 14:57 rt 02/16 14:09 Order name: NT PRO-BNP; Complete Time: 14:57 rt 02/16 14:09 Order name: Troponin HS; Complete Time: 14:57 rt 02/16 14:09 Order name: XRAY Chest (1 view); Complete Time: 15:37 rt 02/16 14:09 Order name: Cardiac monitoring; Complete Time: 14:10 rt 02/16 14:09 Order name: EKG - Nurse/Tech; Complete Time: 14:10 rt 02/16 14:09 Order name: IV Saline Lock; Complete Time: 14:10 rt 02/16 14:09 Order name: Labs collected and sent; Complete Time: 14:10 rt 02/16 14:09 Order name: O2 Per Protocol; Complete Time: 14: rt 02/16 14:09 Order name: O2 Sat Monitoring; Complete Time: 14:10 rt EC:12 Rate is 95 beats/min. Rhythm is regular, A fib with No ectopy. QRS [place] is Normal. QRS rt interval is normal. QT interval is normal. No Q waves. No ST changes noted. Interpreted by me. Administered Medications: No medications were administered Disposition Summary: 02/17/24 15:46 Left Against Medical Advice Notes: Location: Home rt Problem: new rt Symptoms: have improved rt Condition: Fair rt Diagnosis - Chest pain, unspecified rt Followup: rt - With: Private Physician - When: 1 - 2 days - Reason: Discharge Instructions: - Discharge Summary Sheet rt - Nonspecific Chest Pain, Adult rt Signatures: Dispatcher [employer] Dianna Borges RN RN mb9 Andrew Du MD MD rt
[2024-02-17 18:51] VITALS: TEMP 98
[2024-02-17 18:54] VITALS: BP 117/65; O2SAT 100
--- NOTE | 2024-02-23 12:17 | EKG ---
Test Date: 2024-02-17 Test Time: 14:00:57 Business Machine Mechanic: YARELI MEASUREMENT RESULTS: Intervals: Rate: 95 VT: QRSD: 100 QT: 312 QTc: 392 [place]: P: VT: QRS: 64 T: 61 INTERPRETIVE STATEMENTS: Atrial fibrillation Septal infarct, age undetermined Abnormal ECG Compared to ECG 03/09/2019 01:36:02 Myocardial infarct finding now present Electronically Signed On 02-23-24 12:01:13 CDT by Kameron Eisenberg
== END 2024-02-17 16:02 | disposition left against medical advice (07) ==
LOC: ER 13:57
DX: R07.89 Other chest pain (principal); I10 Essential (primary) hypertension; I48.91 Unspecified atrial fibrillation; I25.2 Old myocardial infarction; F17.220 Nicotine dependence, chewing tobacco, uncomplicated; Z95.818 Presence of other cardiac implants and grafts; Z79.01 Long term (current) use of anticoagulants
CPT/HCPCS: 36415; 71045; 80048; 80076; 83880; 84484; 85025; 93005; 99284

== ENCOUNTER 2024-09-11 17:24 | Emergency (ER) | payer OTHER ==
[2024-09-11] MEDS ORDERED: DERMABOND SKIN ADHESIVE TOP ONE (18:39)
--- NOTE | 2024-09-11 19:02 | ER ---
Nurse's Notes [facility] Name: Stefano Celeste Age: 84 yrs Sex: Male : 1940 Arrival Date: 09/11/2024 Time: 17:24 Bed 9 Private MD: Diagnosis: Laceration without foreign body of lower leg Presentation: 09/11 17:31 Chief complaint: Patient states: Cat scratch behind L knee happened 30 minutes [employer]. ll1 Bleeding controlled. Coronavirus screen: Client denies travel out of the [place] in the last 14 days. At this time, the client does not indicate any symptoms associated with coronavirus-19. Ebola Screen: Patient denies travel to an Ebola-affected area in the 21 days before illness onset. Complicating Factors: There are no complicating factors for this patient. Initial Sepsis Screen: Does the patient meet any 2 criteria? No. Patient's initial sepsis screen is negative. Does the patient have a suspected source of infection? No. Patient's initial sepsis screen is negative. Risk Assessment: Do you want to hurt yourself or someone else? Patient reports no desire to harm self or others. Onset of symptoms was September 11, 2024. 17:31 Method Of Arrival: Wheelchair ll1 17:31 Acuity: IZABEL 4 ll1 Triage Assessment: 17:34 General: Appears in no apparent distress. Behavior is calm, cooperative, appropriate ll1 for age. Pain: Denies pain. Derm: Reports cat scratch behind L knee. Injury Description: Laceration sustained to left leg. Historical: - Allergies: 17:30 No Known Drug Allergies; ll1 - PMHx: 17:30 Atrial Fib; Diabetes - NIDDM; Myocardial infarction; Hypertension; COPD; cardiac ll1 stents; pituitary tumor (removed); Prostate Cancer; - PSHx: 17:30 cardiac stents (te); tumor removal (te); ll1 - Immunization history:: Adult Immunizations up to date. - Infectious Disease History:: Denies. - Social history:: Smoking status: Patient denies any tobacco usage or history of. Screenin:50 [facility] ED Fall Risk Assessment (Adult) History of falling in the last 3 months, mb9 including since admission No falls in past 3 months (0 pts) Confusion or Disorientation No (0 pts) Intoxicated or Sedated No (0 pts) Impaired Gait No (0 pts) Mobility Assist Device Used No (0 pt) Altered Elimination No (0 pt) Score/Fall Risk Level 0 - 2 = Low Risk Oriented to surroundings, Maintained a safe environment, Educated pt \T\ family on fall prevention, incl call for assistance when getting out of bed. Abuse screen: Denies threats or abuse. Nutritional screening: No deficits noted. Tuberculosis screening: No symptoms or risk factors identified. Assessment: 18:49 General: Appears in no apparent distress. Behavior is calm, cooperative. Pain: Denies mb9 pain. Neuro: Level of Consciousness is awake, alert, obeys commands, Oriented to person, place, time, situation, Appropriate for age. Cardiovascular: Patient's skin is warm and dry. Respiratory: Airway is patent. GI: No signs and/or symptoms were reported involving the gastrointestinal system. : No signs and/or symptoms were reported regarding the genitourinary system. Derm: Skin is pink, warm \T\ dry. Musculoskeletal: Range of motion: intact in all extremities. Injury Description: Laceration sustained to posterior aspect of left knee is clean, superficial, 0.5 to 2.5 cm long, not bleeding. 19:10 Reassessment: Patient is alert, oriented x 3, equal unlabored respirations, skin br2 warm/dry/pink. Patient states feeling better. Patient states symptoms have improved. Vital Signs: 17:31 BP 144 / 74; Pulse 68; Resp 17; Temp 97.9; Pulse Ox 98% ; Weight 107.05 kg; Height 6 ll1 ft. 0 in. ; Pain 0/10; 17:31 Body Mass Index 32.01 (107.05 kg, 182.88 cm) ll1 17:31 Pain Scale: Adult ll1 ED Course: 17:26 Patient arrived in ED. mr 17:27 [facility] kb 17:27 Lico Trinidad MD is Attending Physician. kb 17:32 Triage completed. ll1 17:34 Arm band placed on. ll1 18:50 Bed in low position. Call light in reach. Side rails up X 1. Provided Education on: mb9 press call light if needing anything. Client placed on continuous cardiac and pulse oximetry monitoring. NIBP monitoring applied. 18:50 Patient did not have IV access during this emergency room visit. mb9 18:51 Dianna Nicole, RN is Primary Nurse. mb9 19:15 No provider procedures requiring assistance completed. br2 Administered Medications: No medications were administered Medication: 18:50 VIS not applicable for this client. mb9 Outcome: 19:01 Discharge ordered by . kb 19:15 Discharged to home ambulatory, br2 19:15 Condition: stable 19:15 Discharge instructions given to patient, Instructed on discharge instructions, follow up and referral plans. Demonstrated understanding of instructions, follow-up care, wound care, 19:27 Patient left the ED. br2 Signatures: Lesly Chowdary, LEAN CONSULTANT-C LEAN CONSULTANT-CkDianna Waldron, Reg Reg mr Yuriy Mullins RN RN ll1 Dianna Nicole, RN RN mb9 Olga Zuniga, CHERYL RN br2 Corrections: (The following items were deleted from the chart) 17:34 17:31 107.05 kg; Height 6 ft. 0 in.; BMI: 32.0; Pain 0/10, Adult; ll1 ll1
--- NOTE | 2024-09-11 19:02 | EDPHYS ---
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 States he couldn't get to them on his own so he came in to have them cleaned and fixed. . Historical: - Allergies: 17:30 No Known Drug Allergies; ll1 - PMHx: 17:30 Atrial Fib; Diabetes - NIDDM; Myocardial infarction; Hypertension; COPD; cardiac ll1 stents; pituitary tumor (removed); Prostate Cancer; - PSHx: 17:30 cardiac stents (te); tumor removal (te); ll1 - Immunization history:: Adult Immunizations up to date. - Infectious Disease History:: Denies. - Social history:: Smoking status: Patient denies any tobacco usage or history of. ROS: 18:44 Constitutional: As per HPI kb Exam: 18:44 Constitutional: This is a well developed, well nourished patient who is awake, alert, kb and in no acute distress. Head/Face: Normocephalic, atraumatic. ENT: Moist Mucous membranes Cardiovascular: Regular rate Respiratory: Respirations even and unlabored. No increased work of breathing. Talking in full sentences MS/ Extremity: Pulses equal, no cyanosis. Neurovascular intact. Full, normal range of motion. Neuro: Awake and alert, GCS 15, oriented to person, place, time, and situation. 18:44 Skin: injury, laceration(s), the wound is approximately 2 cm(s), of the posterior aspect of left knee, the second wound is approximately 2 cm(s), of the posterior aspect of left knee, that can be described as clean, no foreign body, linear, without bleeding, superficial, Vital Signs: 17:31 BP 144 / 74; Pulse 68; Resp 17; Temp 97.9; Pulse Ox 98% ; Weight 107.05 kg; Height 6 ll1 ft. 0 in. ; Pain 0/10; 17:31 Body Mass Index 32.01 (107.05 kg, 182.88 cm) ll1 17:31 Pain Scale: Adult ll1 MDM: 17:28 Medical Screening Exam initiated kb 18:45 Differential diagnosis: superficial laceration, tendon injury, vascular injury. Data kb reviewed: vital signs, nurses notes. 19:01 Counseling: I had a detailed discussion with the patient and/or guardian regarding the kb historical points, exam findings, and any diagnostic results supporting the discharge/admit diagnosis, the need for outpatient follow up, a family practitioner, to return to the emergency department if symptoms worsen or persist or if there are any questions or concerns that arise at home. 09/11 17:31 Order name: Wound Care; Complete Time: 18:49 kb 09/11 17:31 Order name: Dermabond; Complete Time: 18:49 kb Administered Medications: No medications were administered Disposition: 19:31 Co-signature as Attending Physician, Lico Trinidad MD I reviewed the patient's care rn provided by the Advanced Practice Provider and agree with the diagnosis and treatment plan. Disposition Summary: 09/11/24 19:01 Discharge Ordered Notes: Location: Home kb Condition: Stable kb Diagnosis - Laceration without foreign body of lower leg kb Followup: kb - With: Emergency Department - When: As needed - Reason: Worsening of condition Followup: kb - With: Private Physician - When: 2 - 3 days - Reason: Recheck today's complaints, Continuance of care, Re-evaluation by your physician Discharge Instructions: - Discharge Summary Sheet kb - Laceration Care, Adult, [id number] kb Forms: - Medication Reconciliation Form kb - Antibiotic Education kb - Prescription Opioid Use kb - Patient Portal Instructions kb - Leadership Thank You Letter kb Signatures: Lesly Chowdary, STAFF APPRAISER-C STAFF APPRAISER-Lico Rodgers MD MD rn Lewis, Lynsay RN RN ll1 Dianna Nicole RN RN mb9
[2024-09-12 01:52] VITALS: BP 144/74; TEMP 97.9; O2SAT 98
== END 2024-09-11 19:27 | disposition home or self-care (01) ==
LOC: ER 17:24
DX: S81.012A Laceration without foreign body, left knee, initial encounter (principal)
CPT/HCPCS: 99283